=== PATIENT | male | born 1945 | race African-American/Black ===

== ENCOUNTER 2018-10-09 02:07 | Inpatient (IN) | payer OTHER ==
[2018-10-09] MEDS ORDERED: ONDANSETRON 4 MG/2 ML VIAL IVPUSH ONE (02:34)
[2018-10-09] MEDS ORDERED: ACETAMINOPHEN 1000 MG/100 ML VIAL (NON FORMULARY) IVPB ONE (02:34)
[2018-10-09] MEDS ORDERED: ACETAMINOPHEN INJECTION 100 ML IVPB ONE ×2 (02:45→02:50)
[2018-10-09] MEDS ORDERED: ONDANSETRON 4 MG/2 ML VIAL ONE ×2 (02:45→02:51)
[2018-10-09 02:59] LABS: BASO % 0.6 % (0-2.0); EOS % 0.1 % (0-4.5); HEMATOCRIT 42.3 % (35.4-49); HEMOGLOBIN 13.9 GM/dL (11.7-16.9); LYMPH % 3.5 % (8-40); MCH 27.9 pg (25.7-33.7); MCHC 32.8 g/dl (32.0-35.9); MEAN PLT VOLUME 7.6 fl (7.5-11.1); MONO % 9.8 % (3.8-10.2); PLATELET COUNT 204 K/MM3 (134-434); RBC 4.97 M/mm3 (4.00-5.60); RDW 13.6 % (11.9-15.9); WHITE BLOOD COUNT 21.9 K/mm3 (4.0-10.0)
[2018-10-09 03:01] LABS: EPI CELLS 1.3 /HPF (0-5); URINE APPEARANCE CLEAR; URINE BACTERIA 0.8 /hpf (NEGATIVE); URINE BILIRUBIN NEGATIVE (NEGATIVE); URINE CASTS 19 /hpf (0-8); URINE COLOR DK YELLOW; URINE GLUCOSE (UA) NEGATIVE (NEGATIVE); URINE KETONE TRACE (NEGATIVE); URINE LEUK ESTERASE NEGATIVE (NEGATIVE); URINE NITRITE NEGATIVE (NEGATIVE); URINE PROTEIN TRACE (NEGATIVE); URINE RBC 3 /hpf (0-4); URINE WBC 2 /hpf (0-5)
[2018-10-09] MEDS ORDERED: PIPERACILLIN/TAZOB 3.375 GM 3.375 GM in DEXTROSE 5%-WATER - 50 ML IVPB ONE (03:02)
[2018-10-09] MEDS ORDERED: PIPERACILLIN/TAZOB 3.375 GM 3.375 GM/50 ML BAG IVPB ONE (03:06)
--- NOTE | 2018-10-09 03:12 | PDOC ---
History of Present Illness - General Chief Complaint: Pain, Acute Stated Complaint: ABD PAIN Time Seen by Provider: 10/09/18 02:24 History Source: Patient Exam Limitations: No Limitations - History of Present Illness Initial Comments: 10/09/18 03:06 Patient is a 73M with history of kidney cancer s/p L nephrectomy, hernia repair , HTN here today complaining of diffuse abdominal pain, worse on the right side. Patient endorses nausea and vomiting yesterday. Patient states that he's just burping. Last bowel movement 10/07 evening. Passed gas yesterday. Denies fevers, chills. Endorses abdominal distention. Denies dysuria. Past History - Past Medical History Allergies/Adverse Reactions: Allergies Allergy/AdvReac Type Severity Reaction Status Date / Time No Known Drug Allergies Allergy Verified 10/09/18 02:20 Home Medications: Ambulatory Orders Aspirin 81 mg PO DAILY 10/26/12 Docosahexanoic Acid/Epa [Fish Oil Softgel] 1 each PO DAILY 10/26/12 Hydrochlorothiazide [Hctz] 25 mg PO DAILY 10/26/12 Metoprolol Succinate [Toprol XL] 25 mg PO DAILY 10/26/12 Multivitamin with Minerals [Men's One Daily] 1 each PO DAILY 10/26/12 Nifedipine [Nifedipine ER] 90 mg PO DAILY 10/26/12 Potassium Chloride Oral Soln [KCl *Liquid*] 20 meq PO DAILY 10/26/12 Cancer: Yes (KIDNEY/PROSTATE) Cardiac Disorders: No CVA: No COPD: No CHF: No Dementia: No Diabetes: No GI Disorders: No Disorders: No HTN: Yes Hypercholesterolemia: No Liver Disease: No Seizures: No Thyroid Disease: No - Surgical History Abdominal Surgery: No Appendectomy: No Cardiac Surgery: No Cholecystectomy: No Lung Surgery: No Neurologic Surgery: No Orthopedic Surgery: No - Immunization History Immunization Up to Date: Yes - Suicide/Smoking/Psychosocial Hx Smoking History: Never smoked Have you smoked in the past 12 months: No If you are a former smoker, when did you quit?: 1992 Information on smoking cessation initiated: No Hx Alcohol Use: No Drug/Substance Use Hx: No Substance Use Type: None Hx Substance Use Treatment: No Review of Systems - Review of Systems Comments:: 10/09/18 03:09 GENERAL/CONSTITUTIONAL: No fever or chills. No weakness. HEAD, EYES, EARS, NOSE AND THROAT: No change in vision. No sore throat. CARDIOVASCULAR: No chest pain or shortness of breath RESPIRATORY: No cough, wheezing, or hemoptysis. GASTROINTESTINAL: +nausea, +vomiting, no diarrhea or constipation. GENITOURINARY: No dysuria, frequency, or change in urination. MUSCULOSKELETAL: No joint or muscle swelling or pain. No neck or back pain. SKIN: No rash NEUROLOGIC: No headache, vertigo, loss of consciousness, or change in strength/ sensation. HEMATOLOGIC/LYMPHATIC: No anemia, easy bleeding, or history of blood clots. ALLERGIC/IMMUNOLOGIC: No hives or skin allergy. *Physical Exam - Vital Signs Last Vital Signs Temp Pulse Resp BP Pulse Ox 97.7 F 67 18 101/64 97 10/09/18 02:20 10/09/18 02:20 10/09/18 02:20 10/09/18 02:20 10/09/18 03:01 - Physical Exam Comments: 10/09/18 03:09 GENERAL: Awake, alert, and fully oriented, in no acute distress HEAD: No signs of trauma, normocephalic, atraumatic EYES: PERRLA, EOMI, sclera anicteric, conjunctiva clear ENT: Auricles normal inspection, hearing grossly normal, nares patent, oropharynx clear without exudates. Moist mucosa NECK: Normal ROM, supple, no lymphadenopathy, JVD, or masses LUNGS: No distress, speaks full sentences, clear to auscultation bilaterally HEART: Regular rate and rhythm, normal S1 and S2, no murmurs, rubs or gallops, peripheral pulses normal and equal bilaterally. ABDOMEN: Distended, diffusely tender, worse on right side. +Voluntary guarding. EXTREMITIES: Normal inspection, Normal range of motion, no edema. No clubbing or cyanosis. NEUROLOGICAL: Cranial nerves II through XII grossly intact. Normal speech, no focal sensorimotor deficits SKIN: Warm, Dry, normal turgor, no rashes or lesions noted. ED Treatment Course - LABORATORY CBC & Chemistry Diagram: 10/09/18 02:55 10/09/18 02:55 - ADDITIONAL ORDERS Additional order review: 10/09/18 02:55 RBC 4.97 MCV 85.0 MCHC 32.8 RDW 13.6 MPV 7.6 D Neutrophils % 86.0 H D Lymphocytes % 3.5 L D Monocytes % 9.8 Eosinophils % 0.1 D Basophils % 0.6 - RADIOLOGY Radiology Studies Ordered: Category Date Time Status ABDOMEN & PELVIS CT WITH CONTR [CT] Stat CT Scan 10/09/18 02:35 Ordered - Medications Given in the ED: ED Medications Discontinued Medications Generic Name Dose Route Start Last Admin Trade Name Kalebq PRN Reason Stop Dose Admin Acetaminophen 1,000 mg 10/09/18 02:34 10/09/18 02:52 Ofirmev Injection - IVPB 10/09/18 02:35 1,000 mg ONCE ONE Administration Ondansetron HCl 4 mg 10/09/18 02:34 10/09/18 02:52 Zofran Injection IVPUSH 10/09/18 02:35 4 mg ONCE ONE Administration Medical Decision Making - Medical Decision Making 10/09/18 03:10 Patient is 73M with history of HTN, kidney cancer s/p L sided nephrectomy, and hernia repair here today with abdominal pain. Vitals normal and stable. DDx includes, but is not limited to: sbo, cholecystitis, uti. Will treat with zofran and tylenol, morphine declined by patient. Abdominal labs, CT a/p with iv contrast. CBC shows white count of 22, given zosyn empirically, suspect acute intraabdominal process. 10/09/18 04:45 CMP shows baseline CKD. Lipase normal. Liver enzymes normal. Tbili 1.1. CT shows severe acute cholecystitis, mild inflammation of pancreatic head. Dr Haynes consulted, case discussed. 10/09/18 05:07 Case d/w Dr Hall. *DC/Admit/Observation/Transfer Diagnosis at time of Disposition: Acute cholecystitis - Discharge Dispostion Condition at time of disposition: Stable Decision to Admit order: Yes - Referrals Referrals: Lianne Negron MD [Primary Care Provider] - - Patient Instructions - Post Discharge Activity
[2018-10-09 03:27] LABS: INR 1.23 (0.83-1.09); PROTHROMBIN TIME (PATIENT) 14.5 SEC (9.7-13.0)
[2018-10-09 03:32] LABS: ALBUMIN 3.5 g/dl (3.4-5.0); ALK PHOS 80 U/L (45-117); ANION GAP 11 MMOL/L (8-16); BILIRUBIN,TOTAL 1.1 mg/dL (0.2-1); BLOOD UREA NITROGEN 19 mg/dL (7-18); CALCIUM 8.6 mg/dL (8.5-10.1); CHLORIDE 105 mmol/L (98-107); CO2 26 mmol/L (21-32); CREATININE 1.7 mg/dL (0.55-1.3); GLUCOSE,RANDOM 144 mg/dL (74-106); LIPASE 148 U/L (73-393); POTASSIUM 3.3 mmol/L (3.5-5.1); SGOT/AST 20 U/L (15-37); SGPT/ALT 16 U/L (13-61); SODIUM 142 mmol/L (136-145); TOT PROT 6.8 g/dl (6.4-8.2)
[2018-10-09] MEDS ORDERED: SODIUM CHLORIDE 1,000 ML IV STA (03:41)
--- NOTE | 2018-10-09 04:31 | PDOC ---
Attending Attestation - Resident Resident Name: Luis Worley - ED Attending Attestation I have performed the following: I have examined & evaluated the patient, The case was reviewed & discussed with the resident, I agree w/resident's findings & plan, Exceptions are as noted - HPI HPI: 10/09/18 06:56 73M here with generalized abdominal px, R>L a/w frequent burping, last BM yesterday, passing gas - Physicial Exam PE: 10/09/18 06:57 Agree with exam as documented by resident - Medical Decision Making 10/09/18 06:57 DDx for abdominal px in 73m is broad, including jude, appy, pancreatitis, gastritis f/u imaging analgesia labs Imaging consistent with acute cholecystitis admit gen surg eval
--- NOTE | 2018-10-09 05:09 | HP ---
CHIEF COMPLAINT: Abdominal pain PCP:DR Eng HISTORY OF PRESENT ILLNESS: Patient is a 73M with history of kidney cancer s/p L nephrectomy, hernia repair , HTN, prosatectomy here today complaining of diffuse abdominal pain, worse on the right side. Patient endorses nausea and vomiting yesterday. Patient states that he's just burping. Last bowel movement 10/07 evening. Passed gas yesterday. has similar episode last week , Denies fevers, chills. Endorses abdominal distention. Denies dysuria, hematuria reports slight chest pain 09/20 , short period of time non exertional , denies any headache , blurry vision , sore throat or recent cold. pt reports 2 episode of N/V NBNB yesterday ER course was notable for: (1)CT Abdomen, pelvic with acute cholecystitis and mild Pancreatitis (2)cbc, cmp WBC 21 , K 3.3, BUN/CR 19/1.7, glucose 144 (3)Zosyn , 1L bolus NS Recent Travel: denies PAST MEDICAL HISTORY: Left nephrectomy S/p kidney cancer , Prostatectomy, , HTN PAST SURGICAL HISTORY: as above Social History: Smoking:former smoker quit 20 years ago , smoke 1 ppd since age of 14 till 49 Alcohol:quit long time ago Drugs: denies Family History:none Allergies No Known Drug Allergies Allergy (Verified 10/09/18 02:20) HOME MEDICATIONS: Home Medications Medication Instructions Recorded Aspirin 81 mg PO DAILY 10/26/12 Docosahexanoic Acid/Epa [Fish Oil 1 each PO DAILY 10/26/12 Softgel] Hydrochlorothiazide [Hctz] 25 mg PO DAILY 10/26/12 Metoprolol Succinate [Toprol XL] 25 mg PO DAILY 10/26/12 Multivitamin with Minerals [Men's 1 each PO DAILY 10/26/12 One Daily] Nifedipine [Nifedipine ER] 90 mg PO DAILY 10/26/12 Potassium Chloride Oral Soln [KCl 20 meq PO DAILY 10/26/12 *Liquid*] REVIEW OF SYSTEMS CONSTITUTIONAL: Absent: fever, chills, diaphoresis, generalized weakness, malaise, loss of appetite, weight change HEENT: Absent: rhinorrhea, nasal congestion, throat pain, throat swelling, difficulty swallowing, mouth swelling, ear pain, eye pain, visual changes CARDIOVASCULAR: Absent: chest pain, syncope, palpitations, irregular heart rate, lightheadedness , peripheral edema RESPIRATORY: Absent: cough, shortness of breath, dyspnea with exertion, orthopnea, wheezing, stridor, hemoptysis GASTROINTESTINAL: Absent: abdominal pain, abdominal distension, nausea, vomiting, diarrhea, constipation, melena, hematochezia GENITOURINARY: Absent: dysuria, frequency, urgency, hesitancy, hematuria, flank pain, genital pain MUSCULOSKELETAL: Absent: myalgia, arthralgia, joint swelling, back pain, neck pain SKIN: Absent: rash, itching, pallor HEMATOLOGIC/IMMUNOLOGIC: Absent: easy bleeding, easy bruising, lymphadenopathy, frequent infections ENDOCRINE: Absent: unexplained weight gain, unexplained weight loss, heat intolerance, cold intolerance NEUROLOGIC: Absent: headache, focal weakness or paresthesias, dizziness, unsteady gait, seizure, mental status changes, bladder or bowel incontinence PSYCHIATRIC: Absent: anxiety, depression, suicidal or homicidal ideation, hallucinations. PHYSICAL EXAMINATION Vital Signs - 24 hr 10/09/18 10/09/18 02:20 03:01 Temperature 97.7 F Pulse Rate 67 Respiratory 18 Rate Blood Pressure 101/64 O2 Sat by Pulse 96 97 Oximetry (%) GENERAL: AAOx3 in NAD HEAD: NC/AT EYES: EOMI, Conjunctiva clear, sclera anicteric ENT: moist mucous membrane NECK: Supple, no JVD LUNGS: CTA B/L, no crackles no wheezing no accessory muscle use. HEART: RRR, normal s1, s2, murmur no M/R/G ABDOMEN: Soft, diffuse tenderness , distended RUQ tenderness RLQ , LLQ tenderness Liriano positive , +BS 4 Q, no CVA Tenderness, left surgical incision , Lower abdomen surgical incision LOWER EXTREMITIES: no edema, +2DP pulse, NEUROLOGICAL: No focal deficit. Normal speech. gait not observed. PSYCHIATRIC: Cooperative. Good eye contact. Appropriate mood and affect. SKIN: Warm, dry, Laboratory Results - last 24 hr 10/09/18 10/09/18 10/09/18 02:51 02:51 02:55 WBC 21.9 H RBC 4.97 Hgb 13.9 Hct 42.3 MCV 85.0 MCH 27.9 MCHC 32.8 RDW 13.6 Plt Count 204 MPV 7.6 D Absolute Neuts (auto) 18.8 H Neutrophils % 86.0 H D Lymphocytes % 3.5 L D Monocytes % 9.8 Eosinophils % 0.1 D Basophils % 0.6 Nucleated RBC % 0 PT with INR 14.50 H INR 1.23 H Sodium Potassium Chloride Carbon Dioxide Anion Gap BUN Creatinine Creat Clearance w eGFR Random Glucose Calcium Total Bilirubin AST ALT Alkaline Phosphatase Total Protein Albumin Lipase Urine Color Dk yellow Urine Appearance Clear Urine pH 5.0 Ur Specific [place] 1.021 Urine Protein Trace Urine Glucose (UA) Negative Urine Ketones Trace H Urine Blood Trace Urine Nitrite Negative Urine Bilirubin Negative Urine Urobilinogen 1.0 Ur Leukocyte Esterase Negative Urine WBC (Auto) 2 Urine RBC (Auto) 3 Urine Casts (Auto) 19 U Epithel Cells (Auto) 1.3 Urine Bacteria (Auto) 0.8 10/09/18 02:55 WBC RBC Hgb Hct MCV MCH MCHC RDW Plt Count MPV Absolute Neuts (auto) Neutrophils % Lymphocytes % Monocytes % Eosinophils % Basophils % Nucleated RBC % PT with INR INR Sodium 142 Potassium 3.3 L Chloride 105 Carbon Dioxide 26 Anion Gap 11 BUN 19 H Creatinine 1.7 H Creat Clearance w eGFR 39.71 Random Glucose 144 H Calcium 8.6 Total Bilirubin 1.1 H AST 20 ALT 16 Alkaline Phosphatase 80 Total Protein 6.8 Albumin 3.5 Lipase 148 Urine Color Urine Appearance Urine pH Ur Specific [place] Urine Protein Urine Glucose (UA) Urine Ketones Urine Blood Urine Nitrite Urine Bilirubin Urine Urobilinogen Ur Leukocyte Esterase Urine WBC (Auto) Urine RBC (Auto) Urine Casts (Auto) U Epithel Cells (Auto) Urine Bacteria (Auto) CBC, BMP 10/09/18 02:55 10/09/18 02:55 ASSESSMENT/PLAN: 73M with history of kidney cancer s/p L nephrectomy, hernia repair,prosatectomy , HTN presented with 2 day history of RUQ abdominal pain with N/V admitted to M /S for acute cholecystitis and mild pancreatitis # acute cholecystitis R.O sepsis , mild pancreatitis * CT scan reviewed * WBC 21.9 , BP 101/64 , started on zosyn in Ed will cont with ceftrixone , can deteriorate to sepsis , * LA , cbc bmp * Surgery consult , DR Haynes * PT, PTT , INR , MG, Phosphor, * type and screen , * EKG with NSR , QTC 365 * NPO * zofran for nausea , Tylenol IV for pain , * trend amylase and lipase * LR fluids bolus and maintenance # Mild atypicaL chest pain no EKG changes , trend trop , EKG # NAHID # H/o kidney cancer S/P left nephroectomy * BUN/Cr 19/1.7 * repeat after hydration * urine lytes , FENA, urine Na , urine urea * avoid nephrotoxic agents nSAID , Dye , contrast # HTN , * hold home meds HCTZ 25, Toprol xl 50 , Nefidipin 90 as pt is hypotensive * hold ASA # Hypokalemia likely due to HCTZ * K 3.3 on PO Kcl 20 at home , will replinished with IV now # Elevated BGM * A1c * BGM # right renal cyst * repeat images Q 6 months , follow ou out pt # FEN * NS@ 75 CC * E: monitor and replenished as needed * NPO # Proph * DVTs: SCDS, Hep SQ TID , hold before procedure * GI: no need for now # Dispo * M/S # Full code Visit type - Emergency Visit Emergency Visit: Yes ED Registration Date: 10/09/18 Care time: The patient presented to the Emergency Department on the above date and was hospitalized for further evaluation of their emergent condition. - New Patient This patient is new to me today: Yes Date on this admission: 10/09/18 - Critical Care Critical Care patient: No
--- NOTE | 2018-10-09 05:13 | PN ---
Teaching Attending Note Name of Resident: Sorin Hall ATTENDING PHYSICIAN STATEMENT I saw and evaluated the patient. I reviewed the resident's note and discussed the case with the resident. I agree with the resident's findings and plan as documented. SUBJECTIVE: Patient is a 73 year old man with PMH of kidney cancer s/p L nephrectomy, hernia repair, HTN here today complaining of diffuse abdominal pain, worse on the right side. Patient had nausea and vomiting yesterday. Patient states that he's just burping. Last bowel movement 10/07 evening. Passed gas yesterday. Denies fevers, chills but has abdominal distention. Denies dysuria, hematuria, frequency, chest pain, SOB or dizziness. OBJECTIVE: Alert Vital Signs Period Temp Pulse Resp BP Sys/Capellan Pulse Ox Last 24 Hr 97.7 F 67 18 101/64 96-97 HEENT: No Jaundice, eye redness or discharge, PERRLA, EOMI. Normocephalic, atraumatic. External ears are normal and hearing is grossly intact. No nasal discharge. Neck: Supple, nontender. No palpable adenopathy or thyromegaly. No JVD Chest: Good effort. Clear to auscultation and percussion. Heart: Regular. No S3, rub or murmur Abdomen: Distended, soft, RUQ tenderness and no HSM. No rebound or guarding. Normal bowel sounds. Ext: Peripheral pulses intact. No leg edema. Skin: Warm and dry. No petechiae, rash or ecchymosis. Neuro: Alert. Oriented x3. CN 2-12 grossly intact. Sensation grossly intact in all four extremities and DTR are symmetric. Psych: Appropriate mood and affect. Good insight. Home Medications Medication Instructions Recorded Aspirin 81 mg PO DAILY 10/26/12 Docosahexanoic Acid/Epa [Fish Oil 1 each PO DAILY 10/26/12 Softgel] Hydrochlorothiazide [Hctz] 25 mg PO DAILY 10/26/12 Metoprolol Succinate [Toprol XL] 25 mg PO DAILY 10/26/12 Multivitamin with Minerals [Men's 1 each PO DAILY 10/26/12 One Daily] Nifedipine [Nifedipine ER] 90 mg PO DAILY 10/26/12 Potassium Chloride Oral Soln [KCl 20 meq PO DAILY 10/26/12 *Liquid*] Abnormal Lab Results 10/09/18 10/09/1810/09/19 02:51 02:51 02:55 WBC 21.9 H Absolute Neuts (auto) 18.8 H Neutrophils % 86.0 H D Lymphocytes % 3.5 L D PT with INR 14.50 H INR 1.23 H Potassium BUN Creatinine Random Glucose Total Bilirubin Urine Ketones Trace H 10/09/18 02:55 WBC Absolute Neuts (auto) Neutrophils % Lymphocytes % PT with INR INR Potassium 3.3 L BUN 19 H Creatinine 1.7 H Random Glucose 144 H Total Bilirubin 1.1 H Urine Ketones ASSESSMENT AND PLAN: 1. Cholecystitis - CT shows severe acute cholecystitis, mild inflammation of pancreatic head. Got IV Zosyn and I liter bolus of NS in the ER. Getting sepsis work up, lactic acid level and will continue IV NS. EKG shows sinus bradycardia with no ST-T wave changes. Surgeon - Dr. Haynes consulted by ER staff for cholecystitis. Being kept NPO. 2. NAHID - Likely partly due to dehydration in the setting of single kidney. Will hold HCTZ and hydrate gently with IV NS. Hypokalemia likely due to HCTZ. Check serum Mg+ and give IV KCL. Consult nephrology and avoid nephrotoxic agents such as NSAIDS, aminoglycosides, contrast dyes and certain Alternative medicine products. 3. DVT prophylaxis - Lovenox 40 mg SQ q 24 hours. 4. Advance directives - Full code
[2018-10-09] MEDS ORDERED: ONDANSETRON 4 MG/2 ML VIAL IVPUSH PRN (05:44)
[2018-10-09] MEDS ORDERED: SODIUM CHLORIDE 1,000 ML IV SCH ×2 (05:45→06:02)
[2018-10-09] MEDS ORDERED: KCL 10 MEQ IVPB 10 MEQ/100 ML INFUS.BAG IVPB SCH (06:15)
[2018-10-09] MEDS ORDERED: LACTATED RINGERS SOLUTION 1,000 ML/1,000 ML INFUS.BAG IV SCH (06:15)
[2018-10-09 07:01] VITALS: BMI 24.7
[2018-10-09 09:07] LABS: AMYLASE 75 U/L (25-115); LIPASE 101 U/L (73-393)
[2018-10-09 09:13] LABS: BILIRUBIN,DIRECT 0.4 mg/dL (0.0-0.2); MAGNESIUM 2.2 mg/dL (1.8-2.4); PHOSPHOROUS 3.5 mg/dL (2.5-4.9)
--- NOTE | 2018-10-09 10:14 | CONSULT ---
Consult Consult Specialty:: Surgery: Reason for Consultation:: Abdominal pain , cholecystitis. - History of Present Illness Chief Complaint: 73 year old man c/o abdominal pain and distention for 4 days, associated with nausea. - History Source History Provided By: Patient Limitations to Obtaining History: No Limitations (Prostatectomy, Left nephrouretectomy, for maliganancy in 2005.) - Past Surgical History Past Surgical History: Yes: Nephrectomy, Prostatectomy. No: Liver Transplant, Orchiectomy - Alcohol/Substance Use Hx Alcohol Use: No - Smoking History Smoking history: Never smoked Have you smoked in the past 12 months: No If you are a former smoker, when did you quit?: 1992 Home Medications - Allergies Allergies/Adverse Reactions: Allergies Allergy/AdvReac Type Severity Reaction Status Date / Time No Known Drug Allergies Allergy Verified 10/09/18 02:20 - Home Medications Home Medications: Ambulatory Orders Aspirin 81 mg PO DAILY 10/26/12 Docosahexanoic Acid/Epa [Fish Oil Softgel] 1 each PO DAILY 10/26/12 Hydrochlorothiazide [Hctz] 25 mg PO DAILY 10/26/12 Metoprolol Succinate [Toprol XL] 50 mg PO DAILY 10/26/12 Multivitamin with Minerals [Men's One Daily] 1 each PO DAILY 10/26/12 Nifedipine [Nifedipine ER] 90 mg PO DAILY 10/26/12 Potassium Chloride Oral Soln [KCl *Liquid*] 20 meq PO DAILY 10/26/12 Alfuzosin HCl [Alfuzosin HCl ER] 10 mg PO DAILY 10/09/18 Physical Exam Vital Signs: Vital Signs Temperature 98.8 F 10/09/18 08:17 Pulse Rate 62 10/09/18 08:17 Respiratory Rate 20 10/09/18 08:17 Blood Pressure 130/61 10/09/18 08:17 O2 Sat by Pulse Oximetry (%) 97 10/09/18 05:13 Gastrointestinal: Yes: Distention (Abdomen is distender , tender in right upper quadrant with guarding, Big distended, palpable gallbladder), Palpable Mass ( Palpable gallbladder in right upper quadrant.) Labs: CBC, BMP 10/09/18 02:55 10/09/18 02:55 Imaging - Results Cat Scan: Report Reviewed (Distended gallbladder , ? pancreatitis.) Problem List - Problems (1) Cholelithiasis and acute cholecystitis with obstruction Code(s): K80.01 - CALCULUS OF GALLBLADDER W ACUTE CHOLECYSTITIS W OBSTRUCTION (2) Renal dysfunction Code(s): N28.9 - DISORDER OF KIDNEY AND URETER, UNSPECIFIED (3) Hypokalemia Code(s): E87.6 - HYPOKALEMIA (4) Hyperglycemia Code(s): R73.9 - HYPERGLYCEMIA, UNSPECIFIED (5) Leucocytosis Code(s): D72.829 - ELEVATED WHITE BLOOD CELL COUNT, UNSPECIFIED Assessment/Plan Patient has severe inflammation around the gallbladder and around the pancreas, He has acute on chronic renal dysfunction . Markedly distended gallbladder. Will request drainage of the gallbladder , control the infection and consider interval cholecystectomy. Request made for ultrasound and drainage of the gallbladder. Antibiotics. Hydrate . Correct hyerglycemia, and hypokalemia. He has been on aspirin
[2018-10-09 10:21] LABS: BASO % 0.5 % (0-2.0); EOS % 0.8 % (0-4.5); HEMATOCRIT 41.1 % (35.4-49); HEMOGLOBIN 13.6 GM/dL (11.7-16.9); LYMPH % 6.3 % (8-40); MCH 28.4 pg (25.7-33.7); MEAN CELL VOLUME 86.1 fl (80-96); MEAN PLT VOLUME 8.3 fl (7.5-11.1); NEUT % 82.4 % (42.8-82.8); PLATELET COUNT 183 K/MM3 (134-434); RBC 4.77 M/mm3 (4.00-5.60); RDW 13.8 % (11.9-15.9); WHITE BLOOD COUNT 19.2 K/mm3 (4.0-10.0)
--- NOTE | 2018-10-09 10:22 | EKG ---
Test Reason : Blood Pressure : / mmHG Vent. Rate : 060 BPM Atrial Rate : 060 BPM P-R Int : 152 ms QRS Dur : 094 ms QT Int : 396 ms P-R-T Axes : 059 -12 035 degrees QTc Int : 396 ms NORMAL SINUS RHYTHM NONSPECIFIC T WAVE ABNORMALITY ABNORMAL ECG WHEN COMPARED WITH ECG OF 09-OCT-2018 02:51, NO SIGNIFICANT CHANGE WAS FOUND Confirmed by TANVIR ARELLANO MD ([id number]) on 10/09/2018 10:22:11 AM Referred By: EVE JUDD Confirmed By:TANVIR ARELLANO MD
--- NOTE | 2018-10-09 10:25 | EKG ---
Test Reason : Blood Pressure : / mmHG Vent. Rate : 057 BPM Atrial Rate : 057 BPM P-R Int : 148 ms QRS Dur : 086 ms QT Int : 376 ms P-R-T Axes : 055 -15 042 degrees QTc Int : 365 ms SINUS BRADYCARDIA NONSPECIFIC T WAVE ABNORMALITY ABNORMAL ECG Confirmed by TANVIR ARELLANO MD ([id number]) on 10/09/2018 10:24:38 AM Referred By: Confirmed By:TANVIR ARELLANO MD
[2018-10-09 10:35] LABS: ALBUMIN 3.2 g/dl (3.4-5.0); ALK PHOS 76 U/L (45-117); ANION GAP 7 MMOL/L (8-16); BILIRUBIN,TOTAL 1.2 mg/dL (0.2-1); BLOOD UREA NITROGEN 18 mg/dL (7-18); CALCIUM 8.8 mg/dL (8.5-10.1); CHLORIDE 107 mmol/L (98-107); CO2 26 mmol/L (21-32); CREATININE 1.4 mg/dL (0.55-1.3); GLUCOSE,RANDOM 113 mg/dL (74-106); POTASSIUM 3.4 mmol/L (3.5-5.1); SGOT/AST 18 U/L (15-37); SGPT/ALT 16 U/L (13-61); SODIUM 140 mmol/L (136-145); TOT PROT 6.3 g/dl (6.4-8.2)
[2018-10-09] MEDS ORDERED: MIDAZOLAM HCL 2 MG/2 ML SINGLE DOSE VIAL IVPUSH ONE ×2 (11:33→11:50)
[2018-10-09] MEDS ORDERED: DEXTROSE 5%-WATER - 50 ML IVPB ONE (12:16)
[2018-10-09] MEDS ORDERED: cefTRIAXone SODIUM 1 GM VIAL ONE (12:16)
[2018-10-09] MEDS: metoPROLOL SUCCINATE 25 MG TAB.SR.24H (FP) PO SCH ×2 (12:35→21:07)
[2018-10-09 13:33] LABS: INR 1.31 (0.83-1.09); PROTHROMBIN TIME (PATIENT) 15.5 SEC (9.7-13.0)
[2018-10-09] MEDS: CEFTRIAXONE 1 GM in DEXTROSE 5%-WATER - 50 ML IVPB SCH (14:02)
--- NOTE | 2018-10-09 16:38 | PN ---
Teaching Attending Note Name of Resident: Myrna Fajardo ATTENDING PHYSICIAN STATEMENT I saw and evaluated the patient. I reviewed the resident's note and discussed the case with the resident. I agree with the resident's findings and plan as documented with exceptions below. SUBJECTIVE: Patient seen and examined. c/o abdominal pain. No nausea, vomiting or concerns. OBJECTIVE: Vital Signs Period Temp Pulse Resp BP Sys/Capellan Pulse Ox Last 24 Hr 97.2 F-98.8 F 60-71 14-21 101-160/61-86 96-100 Intake & Output 10/06/18 10/07/18 10/08/18 10/09/18 23:59 23:59 23:59 23:59 Intake Total 350 Output Total 1200 Balance -850 Weight 168 lb general: lying in bed in no acute distress Chest: CTAB, no rales or wheezing Abdomen: soft, tenderness in RUQ with positive Liriano' sign, po-umbilical mild tenderness, RUQ guarding, no rigidity, positive bowel sounds Extremities: no edema Home Medications Medication Instructions Recorded Aspirin 81 mg PO DAILY 10/26/12 Docosahexanoic Acid/Epa [Fish Oil 1 each PO DAILY 10/26/12 Softgel] Hydrochlorothiazide [Hctz] 25 mg PO DAILY 10/26/12 Metoprolol Succinate [Toprol XL] 50 mg PO DAILY 10/26/12 Multivitamin with Minerals [Men's 1 each PO DAILY 10/26/12 One Daily] Nifedipine [Nifedipine ER] 90 mg PO DAILY 10/26/12 Potassium Chloride Oral Soln [KCl 20 meq PO DAILY 10/26/12 *Liquid*] Alfuzosin HCl [Alfuzosin HCl ER] 10 mg PO DAILY 10/09/18 Active Medications Heparin Sodium (Porcine) (Heparin -) 5,000 unit SQ TID [facility] Ceftriaxone Sodium 1 gm/ (Dextrose) 50 mls @ 100 mls/hr IVPB DAILY [facility]; Protocol Last Admin: 10/09/18 14:02 Dose: 100 mls/hr Metronidazole (Flagyl 500mg Premixed Ivpb -) 500 mg in 100 mls @ 100 mls/hr IVPB Q8H-IV [facility] Last Admin: 10/09/18 12:35 Dose: 100 mls/hr Dextrose/Lactated Ringer's (D5-Lr -) 1,000 mls @ 100 mls/hr IV ASDIR [facility] Metoprolol Succinate (Toprol Xl -) 25 mg PO BID [facility] Last Admin: 10/09/18 12:35 Dose: 25 mg Ondansetron HCl (Zofran Injection) 4 mg IVPUSH Q6H PRN PRN Reason: NAUSEA Laboratory Results - last 24 hr 10/09/18 10/09/18 10/09/18 02:51 02:51 02:51 WBC RBC Hgb Hct MCV MCH MCHC RDW Plt Count MPV Absolute Neuts (auto) Total Counted Neutrophils % Neutrophils % (Manual) Band Neutrophils % Lymphocytes % Lymphocytes % (Manual) Monocytes % Monocytes % (Manual) Eosinophils % Basophils % Nucleated RBC % PT with INR 14.50 H INR 1.23 H PTT (Actin FS) 30.7 Sodium Potassium Chloride Carbon Dioxide Anion Gap BUN Creatinine Creat Clearance w eGFR Random Glucose Lactic Acid Calcium Phosphorus Magnesium Total Bilirubin Direct Bilirubin AST ALT Alkaline Phosphatase Troponin I Total Protein Albumin Total Amylase Lipase Urine Color Dk yellow Urine Appearance Clear Urine pH 5.0 Ur Specific [place] 1.021 Urine Protein Trace Urine Glucose (UA) Negative Urine Ketones Trace H Urine Blood Trace Urine Nitrite Negative Urine Bilirubin Negative Urine Urobilinogen 1.0 Ur Leukocyte Esterase Negative Urine WBC (Auto) 2 Urine RBC (Auto) 3 Urine Casts (Auto) 19 U Pathogenic Cast Auto Review A* U Epithel Cells (Auto) 1.3 Urine Bacteria (Auto) 0.8 Blood Type Antibody Screen 10/09/18 10/09/18 10/09/18 02:55 02:55 05:31 WBC 21.9 H RBC 4.97 Hgb 13.9 Hct 42.3 MCV 85.0 MCH 27.9 MCHC 32.8 RDW 13.6 Plt Count 204 MPV 7.6 D Absolute Neuts (auto) 18.8 H Total Counted 100 Neutrophils % 86.0 H D Neutrophils % (Manual) 80.0 Band Neutrophils % 9.0 Lymphocytes % 3.5 L D Lymphocytes % (Manual) 7.0 L Monocytes % 9.8 Monocytes % (Manual) 4 Eosinophils % 0.1 D Basophils % 0.6 Nucleated RBC % 0 PT with INR INR PTT (Actin FS) Sodium 142 Potassium 3.3 L Chloride 105 Carbon Dioxide 26 Anion Gap 11 BUN 19 H Creatinine 1.7 H Creat Clearance w eGFR 39.71 Random Glucose 144 H Lactic Acid Calcium 8.6 Phosphorus Magnesium Total Bilirubin 1.1 H Direct Bilirubin AST 20 ALT 16 Alkaline Phosphatase 80 Troponin I Total Protein 6.8 Albumin 3.5 Total Amylase Lipase 148 Urine Color Urine Appearance Urine pH Ur Specific [place] Urine Protein Urine Glucose (UA) Urine Ketones Urine Blood Urine Nitrite Urine Bilirubin Urine Urobilinogen Ur Leukocyte Esterase Urine WBC (Auto) Urine RBC (Auto) Urine Casts (Auto) U Pathogenic Cast Auto U Epithel Cells (Auto) Urine Bacteria (Auto) Blood Type O POSITIVE Antibody Screen Negative 10/09/18 10/09/18 10/09/18 08:30 08:30 08:30 WBC RBC Hgb Hct MCV MCH MCHC RDW Plt Count MPV Absolute Neuts (auto) Total Counted Neutrophils % Neutrophils % (Manual) Band Neutrophils % Lymphocytes % Lymphocytes % (Manual) Monocytes % Monocytes % (Manual) Eosinophils % Basophils % Nucleated RBC % PT with INR INR PTT (Actin FS) Sodium 140 Potassium 3.4 L Chloride 107 Carbon Dioxide 26 Anion Gap 7 L BUN 18 Creatinine 1.4 H Creat Clearance w eGFR 49.68 Random Glucose 113 H Lactic Acid 1.0 Calcium 8.8 Phosphorus 3.5 Magnesium 2.2 Total Bilirubin 1.2 H Direct Bilirubin 0.4 H AST 18 ALT 16 Alkaline Phosphatase 76 Troponin I < 0.02 Total Protein 6.3 L Albumin 3.2 L Total Amylase 75 Lipase 101 Urine Color Urine Appearance Urine pH Ur Specific [place] Urine Protein Urine Glucose (UA) Urine Ketones Urine Blood Urine Nitrite Urine Bilirubin Urine Urobilinogen Ur Leukocyte Esterase Urine WBC (Auto) Urine RBC (Auto) Urine Casts (Auto) U Pathogenic Cast Auto U Epithel Cells (Auto) Urine Bacteria (Auto) Blood Type Antibody Screen 10/09/18 10/09/18 10/09/18 08:30 09:30 12:49 WBC 19.2 H RBC 4.77 Hgb 13.6 Hct 41.1 MCV 86.1 MCH 28.4 MCHC 33.0 RDW 13.8 Plt Count 183 MPV 8.3 Absolute Neuts (auto) 15.8 H Total Counted Neutrophils % 82.4 Neutrophils % (Manual) Band Neutrophils % Lymphocytes % 6.3 L D Lymphocytes % (Manual) Monocytes % 10.0 Monocytes % (Manual) Eosinophils % 0.8 D Basophils % 0.5 Nucleated RBC % 0 PT with INR 15.50 H INR 1.31 H PTT (Actin FS) Sodium Potassium Chloride Carbon Dioxide Anion Gap BUN Creatinine Creat Clearance w eGFR Random Glucose Lactic Acid Calcium Phosphorus Magnesium Total Bilirubin Direct Bilirubin AST ALT Alkaline Phosphatase Troponin I Total Protein Albumin Total Amylase Lipase Urine Color Urine Appearance Urine pH Ur Specific [place] Urine Protein Urine Glucose (UA) Urine Ketones Urine Blood Urine Nitrite Urine Bilirubin Urine Urobilinogen Ur Leukocyte Esterase Urine WBC (Auto) Urine RBC (Auto) Urine Casts (Auto) U Pathogenic Cast Auto U Epithel Cells (Auto) Urine Bacteria (Auto) Blood Type O POSITIVE Antibody Screen CT A/P results reviewed ASSESSMENT AND PLAN: 73 yom with PMHx of L kidney cancer s/p nephrectomy, CKD stage III (Cr around 1.6-1.7), HTN admitted with RUQ abdominal pain, found with acute cholecystitis and mild pancreatitis. -Acute cholecystitis/Pancreatitis around the head, with sepsis -Cholelithiasis -CKD stage III (baseline Cr around 1.6-1.7) -HTN -Left kidney cancer s/p nephrectomy -Hyperglycemia Plan: ceftriaxone/flagyl. Discussed with Dr. Haynes, plan for IR guided cholecystostomy tube placement. Pancreatic head inflammation, ?From adjacent choleystitis rather than obstructive etiology. Normal LFTs and bilirubin Follow blood cx. IVF, NPO for now. Continue metoprolol. Check A1c monitor renal function. dvTPPX heparin Dispo pending clinical improvement. Plan discussed with patient and nursing in detail, all questions answered. Care co-ordinated with surgery and IR.
[2018-10-09] MEDS: DEXTROSE 5%-LACTATED RINGERS 1,000 ML IV SCH (16:51)
--- NOTE | 2018-10-09 19:06 | PN ---
Physical Exam: SUBJECTIVE: Patient seen and examined ; c/o abdominal pain RUQ OBJECTIVE: Vital Signs Period Temp Pulse Resp BP Sys/Capellan Pulse Ox Last 24 Hr 97.2 F-98.8 F 60-71 14-21 101-160/61-86 96-100 GENERAL: The patient is awake, alert, and fully oriented, in no acute distress. LUNGS: Breath sounds equal, clear to auscultation bilaterally, no wheezes, no crackles, no accessory muscle use. HEART: Regular rate and rhythm, S1, S2 without murmur, rub or gallop. ABDOMEN: RUQ tenderness; very hard to palpation in area; BS+ EXTREMITIES: 2+ pulses, warm, well-perfused, no edema. NEUROLOGICAL: Cranial nerves II through XII grossly intact. Normal speech, gait not observed. PSYCH: Normal mood, normal affect. SKIN: Warm, dry, normal turgor, no rashes or lesions noted Laboratory Results - last 24 hr 10/09/18 10/09/18 10/09/18 02:51 02:51 02:51 WBC RBC Hgb Hct MCV MCH MCHC RDW Plt Count MPV Absolute Neuts (auto) Total Counted Neutrophils % Neutrophils % (Manual) Band Neutrophils % Lymphocytes % Lymphocytes % (Manual) Monocytes % Monocytes % (Manual) Eosinophils % Basophils % Nucleated RBC % PT with INR 14.50 H INR 1.23 H PTT (Actin FS) 30.7 Sodium Potassium Chloride Carbon Dioxide Anion Gap BUN Creatinine Creat Clearance w eGFR POC Glucometer Random Glucose Lactic Acid Calcium Phosphorus Magnesium Total Bilirubin Direct Bilirubin AST ALT Alkaline Phosphatase Troponin I Total Protein Albumin Total Amylase Lipase Urine Color Dk yellow Urine Appearance Clear Urine pH 5.0 Ur Specific [place] 1.021 Urine Protein Trace Urine Glucose (UA) Negative Urine Ketones Trace H Urine Blood Trace Urine Nitrite Negative Urine Bilirubin Negative Urine Urobilinogen 1.0 Ur Leukocyte Esterase Negative Urine WBC (Auto) 2 Urine RBC (Auto) 3 Urine Casts (Auto) 19 U Pathogenic Cast Auto Review A* U Epithel Cells (Auto) 1.3 Urine Bacteria (Auto) 0.8 Blood Type Antibody Screen 10/09/18 10/09/18 10/09/18 02:55 02:55 05:31 WBC 21.9 H RBC 4.97 Hgb 13.9 Hct 42.3 MCV 85.0 MCH 27.9 MCHC 32.8 RDW 13.6 Plt Count 204 MPV 7.6 D Absolute Neuts (auto) 18.8 H Total Counted 100 Neutrophils % 86.0 H D Neutrophils % (Manual) 80.0 Band Neutrophils % 9.0 Lymphocytes % 3.5 L D Lymphocytes % (Manual) 7.0 L Monocytes % 9.8 Monocytes % (Manual) 4 Eosinophils % 0.1 D Basophils % 0.6 Nucleated RBC % 0 PT with INR INR PTT (Actin FS) Sodium 142 Potassium 3.3 L Chloride 105 Carbon Dioxide 26 Anion Gap 11 BUN 19 H Creatinine 1.7 H Creat Clearance w eGFR 39.71 POC Glucometer Random Glucose 144 H Lactic Acid Calcium 8.6 Phosphorus Magnesium Total Bilirubin 1.1 H Direct Bilirubin AST 20 ALT 16 Alkaline Phosphatase 80 Troponin I Total Protein 6.8 Albumin 3.5 Total Amylase Lipase 148 Urine Color Urine Appearance Urine pH Ur Specific [place] Urine Protein Urine Glucose (UA) Urine Ketones Urine Blood Urine Nitrite Urine Bilirubin Urine Urobilinogen Ur Leukocyte Esterase Urine WBC (Auto) Urine RBC (Auto) Urine Casts (Auto) U Pathogenic Cast Auto U Epithel Cells (Auto) Urine Bacteria (Auto) Blood Type O POSITIVE Antibody Screen Negative 10/09/18 10/09/18 10/09/18 08:30 08:30 08:30 WBC RBC Hgb Hct MCV MCH MCHC RDW Plt Count MPV Absolute Neuts (auto) Total Counted Neutrophils % Neutrophils % (Manual) Band Neutrophils % Lymphocytes % Lymphocytes % (Manual) Monocytes % Monocytes % (Manual) Eosinophils % Basophils % Nucleated RBC % PT with INR INR PTT (Actin FS) Sodium 140 Potassium 3.4 L Chloride 107 Carbon Dioxide 26 Anion Gap 7 L BUN 18 Creatinine 1.4 H Creat Clearance w eGFR 49.68 POC Glucometer Random Glucose 113 H Lactic Acid 1.0 Calcium 8.8 Phosphorus 3.5 Magnesium 2.2 Total Bilirubin 1.2 H Direct Bilirubin 0.4 H AST 18 ALT 16 Alkaline Phosphatase 76 Troponin I < 0.02 Total Protein 6.3 L Albumin 3.2 L Total Amylase 75 Lipase 101 Urine Color Urine Appearance Urine pH Ur Specific [place] Urine Protein Urine Glucose (UA) Urine Ketones Urine Blood Urine Nitrite Urine Bilirubin Urine Urobilinogen Ur Leukocyte Esterase Urine WBC (Auto) Urine RBC (Auto) Urine Casts (Auto) U Pathogenic Cast Auto U Epithel Cells (Auto) Urine Bacteria (Auto) Blood Type Antibody Screen 0310/09/18 10/09/18 08:30 09:30 12:49 WBC 19.2 H RBC 4.77 Hgb 13.6 Hct 41.1 MCV 86.1 MCH 28.4 MCHC 33.0 RDW 13.8 Plt Count 183 MPV 8.3 Absolute Neuts (auto) 15.8 H Total Counted Neutrophils % 82.4 Neutrophils % (Manual) Band Neutrophils % Lymphocytes % 6.3 L D Lymphocytes % (Manual) Monocytes % 10.0 Monocytes % (Manual) Eosinophils % 0.8 D Basophils % 0.5 Nucleated RBC % 0 PT with INR 15.50 H INR 1.31 H PTT (Actin FS) Sodium Potassium Chloride Carbon Dioxide Anion Gap BUN Creatinine Creat Clearance w eGFR POC Glucometer Random Glucose Lactic Acid Calcium Phosphorus Magnesium Total Bilirubin Direct Bilirubin AST ALT Alkaline Phosphatase Troponin I Total Protein Albumin Total Amylase Lipase Urine Color Urine Appearance Urine pH Ur Specific [place] Urine Protein Urine Glucose (UA) Urine Ketones Urine Blood Urine Nitrite Urine Bilirubin Urine Urobilinogen Ur Leukocyte Esterase Urine WBC (Auto) Urine RBC (Auto) Urine Casts (Auto) U Pathogenic Cast Auto U Epithel Cells (Auto) Urine Bacteria (Auto) Blood Type O POSITIVE Antibody Screen 10/09/18 17:03 WBC RBC Hgb Hct MCV MCH MCHC RDW Plt Count MPV Absolute Neuts (auto) Total Counted Neutrophils % Neutrophils % (Manual) Band Neutrophils % Lymphocytes % Lymphocytes % (Manual) Monocytes % Monocytes % (Manual) Eosinophils % Basophils % Nucleated RBC % PT with INR INR PTT (Actin FS) Sodium Potassium Chloride Carbon Dioxide Anion Gap BUN Creatinine Creat Clearance w eGFR POC Glucometer 99 Random Glucose Lactic Acid Calcium Phosphorus Magnesium Total Bilirubin Direct Bilirubin AST ALT Alkaline Phosphatase Troponin I Total Protein Albumin Total Amylase Lipase Urine Color Urine Appearance Urine pH Ur Specific [place] Urine Protein Urine Glucose (UA) Urine Ketones Urine Blood Urine Nitrite Urine Bilirubin Urine Urobilinogen Ur Leukocyte Esterase Urine WBC (Auto) Urine RBC (Auto) Urine Casts (Auto) U Pathogenic Cast Auto U Epithel Cells (Auto) Urine Bacteria (Auto) Blood Type Antibody Screen Active Medications Generic Name Dose Route Start Last Admin Trade Name Freq PRN Reason Stop Dose Admin Heparin Sodium (Porcine) 5,000 unit 10/09/18 06:00 Heparin - SQ TID [facility]ITAL[facility] Ceftriaxone Sodium 1 gm/ 50 mls @ 100 mls/hr 10/09/18 10:00 10/09/18 14:02 Dextrose IVPB 100 mls/hr DAILY [facility] Administration Protocol Metronidazole 500 mg in 100 mls @ 100 mls/hr 10/09/18 10:00 10/09/18 17:38 Flagyl 500mg Premixed Ivpb - IVPB 100 mls/hr Q8H-IV [facility]ITAL[facility] Administration Dextrose/Lactated Ringer's 1,000 mls @ 100 mls/hr 10/09/18 16:45 10/09/18 16: 51 D5-Lr - IV 100 mls/hr ASDIR [facility] Administration Metoprolol Succinate 25 mg 10/09/18 10:00 10/09/18 12:35 Toprol Xl - PO 25 mg BID [facility] Administration Ondansetron HCl 4 mg 10/09/18 05:44 Zofran Injection IVPUSH Q6H PRN NAUSEA ASSESSMENT/PLAN: 73 year old male with PMHx of L kidney cancer s/p nephrectomy, CKD stage III ( Cr around 1.6-1.7), HTN admitted with RUQ abdominal pain, found with acute cholecystitis and mild pancreatitis. #abdominal pain secondary to acute cholelithiasis/pancreatitis? -IR drain cholecystostomy tube placement -Dr Haynes following -IVF, NPO #sepsis; sec to acute cholecystiitits -iv ceftriaxone/flagyl -bld cx #DM -insulin ss bgm #CKD stage III (baseline Cr around 1.6-1.7) #HTN #Left kidney cancer s/p nephrectomy VTE: hepatin sq Visit type - Emergency Visit Emergency Visit: Yes ED Registration Date: 10/09/18 Care time: The patient presented to the Emergency Department on the above date and was hospitalized for further evaluation of their emergent condition. - New Patient This patient is new to me today: Yes Date on this admission: 10/09/18 - Critical Care Critical Care patient: No
[2018-10-09] MEDS: ACETAMINOPHEN 325 MG TABLET (FP) PO PRN (21:26)
[2018-10-09] MEDS: HEPARIN NA (PORCINE) 5,000 UNITS/ML 1ML VIAL SQ SCH (22:43)
[2018-10-10] MEDS: ACETAMINOPHEN 325 MG TABLET (FP) PO PRN (06:10)
[2018-10-10] MEDS ORDERED: cefTRIAXone SODIUM 1 GM VIAL ONE (09:16)
[2018-10-10] MEDS ORDERED: DEXTROSE 5%-WATER - 50 ML IVPB ONE (09:16)
[2018-10-10] MEDS: metoPROLOL SUCCINATE 25 MG TAB.SR.24H (FP) PO SCH ×2 (09:21→21:49)
[2018-10-10 09:52] LABS: BASO % 0.3 % (0-2.0); EOS % 2.8 % (0-4.5); HEMATOCRIT 39.7 % (35.4-49); HEMOGLOBIN 13.3 GM/dL (11.7-16.9); LYMPH % 9.8 % (8-40); MCH 28.9 pg (25.7-33.7); MCHC 33.5 g/dl (32.0-35.9); MEAN CELL VOLUME 86.5 fl (80-96); MEAN PLT VOLUME 7.9 fl (7.5-11.1); MONO % 7.1 % (3.8-10.2); PLATELET COUNT 174 K/MM3 (134-434); RBC 4.59 M/mm3 (4.00-5.60); RDW 13.6 % (11.9-15.9); WHITE BLOOD COUNT 12.7 K/mm3 (4.0-10.0)
[2018-10-10 10:24] LABS: ALBUMIN 2.8 g/dl (3.4-5.0); ALK PHOS 77 U/L (45-117); ANION GAP 7 MMOL/L (8-16); BILIRUBIN,DIRECT 0.3 mg/dL (0.0-0.2); BILIRUBIN,TOTAL 0.9 mg/dL (0.2-1); BLOOD UREA NITROGEN 19 mg/dL (7-18); CALCIUM 8.2 mg/dL (8.5-10.1); CHLORIDE 109 mmol/L (98-107); CO2 28 mmol/L (21-32); CREATININE 1.4 mg/dL (0.55-1.3); GLUCOSE,RANDOM 108 mg/dL (74-106); POTASSIUM 3.4 mmol/L (3.5-5.1); SGOT/AST 18 U/L (15-37); SGPT/ALT 15 U/L (13-61); SODIUM 144 mmol/L (136-145)
[2018-10-10] MEDS: CEFTRIAXONE 1 GM in DEXTROSE 5%-WATER - 50 ML IVPB SCH (10:35)
--- NOTE | 2018-10-10 12:00 | PN ---
Physical Exam: SUBJECTIVE: Patient seen and examined, abdominal pain better. no nausea, vomiting, fevers or chills. Asking if can eat. OBJECTIVE: Vital Signs Period Temp Pulse Resp BP Sys/Capellan Pulse Ox Last 24 Hr 98 F-100.2 F 64-72 14-21 122-146/62-82 96-97 Intake & Output 10/07/18 10/08/18 10/09/18 10/10/18 23:59 23:59 23:59 23:59 Intake Total 1050 1200 Output Total 2250 100 Balance -1200 1100 Weight 168 lb GENERAL: The patient is awake, alert, and fully oriented, in no acute distress. HEAD: Normal with no signs of trauma. EYES: PERRL, extraocular movements intact, sclera anicteric, conjunctiva clear. No ptosis. ENT: Ears normal, nares patent, oropharynx clear without exudates, moist mucous membranes. NECK: Trachea midline, full range of motion, supple. LUNGS: Breath sounds equal, clear to auscultation bilaterally, no wheezes, no crackles, no accessory muscle use. HEART: Regular rate and rhythm, S1, S2 ABDOMEN: soft, RUQ tenderness at drain site, improved exam, non distended, positive bowel sounds EXTREMITIES: 2+ pulses, warm, well-perfused, no edema. PSYCH: Normal mood, normal affect. SKIN: Warm, dry, normal turgor, no rashes or lesions noted Laboratory Results - last 24 hr 10/09/18 10/09/18 10/10/18 12:49 17:03 07:30 WBC RBC Hgb Hct MCV MCH MCHC RDW Plt Count MPV Absolute Neuts (auto) Neutrophils % Lymphocytes % Monocytes % Eosinophils % Basophils % Nucleated RBC % PT with INR 15.50 H INR 1.31 H Sodium Potassium Chloride Carbon Dioxide Anion Gap BUN Creatinine Creat Clearance w eGFR POC Glucometer 99 Random Glucose Hemoglobin A1c % 6.0 Calcium Total Bilirubin Direct Bilirubin AST ALT Alkaline Phosphatase Total Protein Albumin 10/10/18 10/10/18 10/10/18 07:30 07:30 11:45 WBC 12.7 H RBC 4.59 Hgb 13.3 Hct 39.7 MCV 86.5 MCH 28.9 MCHC 33.5 RDW 13.6 Plt Count 174 MPV 7.9 Absolute Neuts (auto) 10.1 H Neutrophils % 80.0 Lymphocytes % 9.8 D Monocytes % 7.1 Eosinophils % 2.8 D Basophils % 0.3 Nucleated RBC % 0 PT with INR INR Sodium 144 Potassium 3.4 L Chloride 109 H Carbon Dioxide 28 Anion Gap 7 L BUN 19 H Creatinine 1.4 H Creat Clearance w eGFR 49.68 POC Glucometer 116 Random Glucose 108 H Hemoglobin A1c % Calcium 8.2 L Total Bilirubin 0.9 Direct Bilirubin 0.3 H AST 18 ALT 15 Alkaline Phosphatase 77 Total Protein 6.0 L Albumin 2.8 L Active Medications Generic Name Dose Route Start Last Admin Trade Name Freq PRN Reason Stop Dose Admin Acetaminophen 650 mg 10/09/18 21:15 10/10/18 06:10 Tylenol - PO 650 mg Q6H PRN Administration Fever Or Pain Heparin Sodium (Porcine) 5,000 unit 10/09/18 06:00 10/09/18 22:43 Heparin - SQ Not Given TID [facility] Ceftriaxone Sodium 1 gm/ 50 mls @ 100 mls/hr 10/09/18 10:00 10/10/18 10:35 Dextrose IVPB 100 mls/hr DAILY [facility] Administration Protocol Metronidazole 500 mg in 100 mls @ 100 mls/hr 10/09/18 10:00 10/10/18 09:21 Flagyl 500mg Premixed Ivpb - IVPB 100 mls/hr Q8H-IV [facility]ITAL[facility] Administration Dextrose/Lactated Ringer's 1,000 mls @ 100 mls/hr 10/09/18 16:45 10/09/18 16: 51 D5-Lr - IV 100 mls/hr ASDIR [facility]ITAL[facility] Administration Potassium Chloride 10 meq in 100 mls @ 100 mls/hr 10/10/18 12:00 Potassium Chloride 10 Meq Premix Ivpb - IVPB 10/10/18 13:59 Q60M VITALIY Metoprolol Succinate 25 mg 10/09/18 10:00 10/10/18 09:21 Toprol Xl - PO 25 mg BID [facility] Administration Nifedipine 90 mg 10/10/18 12:00 Procardia Xl - PO DAILY [facility] Ondansetron HCl 4 mg 10/09/18 05:44 Zofran Injection IVPUSH Q6H PRN NAUSEA Home Medications Medication Instructions Recorded Aspirin 81 mg PO DAILY 10/26/12 Docosahexanoic Acid/Epa [Fish Oil 1 each PO DAILY 10/26/12 Softgel] Hydrochlorothiazide [Hctz] 25 mg PO DAILY 10/26/12 Metoprolol Succinate [Toprol XL] 50 mg PO DAILY 10/26/12 Multivitamin with Minerals [Men's 1 each PO DAILY 10/26/12 One Daily] Nifedipine [Nifedipine ER] 90 mg PO DAILY 10/26/12 Potassium Chloride Oral Soln [KCl 20 meq PO DAILY 10/26/12 *Liquid*] Alfuzosin HCl [Alfuzosin HCl ER] 10 mg PO DAILY 10/09/18 Microbiology 10/09/18 11:50 Body Fluid - Other Gram Stain - Final 10/09/18 11:50 Body Fluid - Other Body Fluid Culture - Preliminary NO AEROBIC GROWTH, 24 HRS 10/09/18 12:51 Body Fluid - Other FRANCO Preparation - Preliminary 10/09/18 12:51 Body Fluid - Other Fungal Culture - Preliminary ASSESSMENT/PLAN: 73 yom with PMHx of L kidney cancer s/p nephrectomy, CKD stage III (Cr around 1.6-1.7), HTN admitted with RUQ abdominal pain, found with acute cholecystitis and mild pancreatitis. -Acute cholecystitis/Pancreatitis around the head, with sepsis -Hypokalemia -Cholelithiasis -CKD stage III (baseline Cr around 1.6-1.7) -HTN -Left kidney cancer s/p nephrectomy -Hyperglycemia Plan: ceftriaxone/flagyl day 2. Fevers improved, WBC better. s/p IR guided cholcystostomy tube placement 10/09. Advance diet per surgery. Blood cx neg so far. IVF, k supplementation. Continue metoprolol. Resume nifedipine. renal function stable. dvTPPX heparin Dispo pending clinical improvement. Plan discussed with patient and nursing in detail, all questions answered. Visit type - Emergency Visit Emergency Visit: Yes ED Registration Date: 10/09/18 Care time: The patient presented to the Emergency Department on the above date and was hospitalized for further evaluation of their emergent condition. - New Patient This patient is new to me today: No - Critical Care Critical Care patient: No - Discharge Referral Referred to [facility] Med P.C.: No
[2018-10-10] MEDS: KCL 10 MEQ IVPB 10 MEQ/100 ML INFUS.BAG IVPB SCH ×2 (12:06→14:59)
[2018-10-10] MEDS: NIFEdipine E.R. 30 MG TABLET (FP) PO SCH (12:06)
[2018-10-10] MEDS: HEPARIN NA (PORCINE) 5,000 UNITS/ML 1ML VIAL SQ SCH ×2 (14:59→21:48)
--- NOTE | 2018-10-10 18:26 | PN ---
Progress Note, Physician - Current Medication List Current Medications: Active Medications Acetaminophen (Tylenol -) 650 mg PO Q6H PRN PRN Reason: Fever Or Pain Last Admin: 10/10/18 06:10 Dose: 650 mg Heparin Sodium (Porcine) (Heparin -) 5,000 unit SQ TID [facility] Last Admin: 10/10/18 14:59 Dose: 5,000 unit Ceftriaxone Sodium 1 gm/ (Dextrose) 50 mls @ 100 mls/hr IVPB DAILY [facility]; Protocol Last Admin: 10/10/18 10:35 Dose: 100 mls/hr Metronidazole (Flagyl 500mg Premixed Ivpb -) 500 mg in 100 mls @ 100 mls/hr IVPB Q8H-IV [facility]ITAL[facility] Last Admin: 10/10/18 09:21 Dose: 100 mls/hr Dextrose/Lactated Ringer's (D5-Lr -) 1,000 mls @ 100 mls/hr IV ASDIR [facility] Last Admin: 10/09/18 16:51 Dose: 100 mls/hr Metoprolol Succinate (Toprol Xl -) 25 mg PO BID [facility] Last Admin: 10/10/18 09:21 Dose: 25 mg Nifedipine (Procardia Xl -) 90 mg PO DAILY [facility] Last Admin: 10/10/18 12:06 Dose: 90 mg Ondansetron HCl (Zofran Injection) 4 mg IVPUSH Q6H PRN PRN Reason: NAUSEA - Objective Vital Signs: Vital Signs Temperature 98.3 F 10/10/18 15:15 Pulse Rate 68 10/10/18 15:15 Respiratory Rate 16 10/10/18 08:15 Blood Pressure 143/78 10/10/18 15:15 O2 Sat by Pulse Oximetry (%) 96 10/10/18 09:00 Labs: CBC, BMP 10/10/18 07:30 10/10/18 07:30 INR, PTT INR 1.31 (0.83-1.09) H 10/09/18 12:49 Problem List - Problems (1) Cholelithiasis and acute cholecystitis with obstruction Code(s): K80.01 - CALCULUS OF GALLBLADDER W ACUTE CHOLECYSTITIS W OBSTRUCTION (2) Renal dysfunction Code(s): N28.9 - DISORDER OF KIDNEY AND URETER, UNSPECIFIED (3) Hypokalemia Code(s): E87.6 - HYPOKALEMIA (4) Hyperglycemia Code(s): R73.9 - HYPERGLYCEMIA, UNSPECIFIED (5) Leucocytosis Code(s): D72.829 - ELEVATED WHITE BLOOD CELL COUNT, UNSPECIFIED Assessment/Plan Surgery: Patient is feeling better . Abdomen is soft , not tender. WBC remains elevated, Cretinine still elevated. Galbladder drained , drainage tube is draining , bilious , and bloody fluid. Resume oral feeding. Patient is informed that the biliary drainage will remain for a few weeks, and cholecystectomy will be scheduled in abiut 3 months from now, when all inflammation has subsided. Continue antibiotics, resume feeding.
[2018-10-11] MEDS: DEXTROSE 5%-LACTATED RINGERS 1,000 ML IV SCH ×2 (02:40→10:08)
[2018-10-11] MEDS: HEPARIN NA (PORCINE) 5,000 UNITS/ML 1ML VIAL SQ SCH ×4 (05:46→21:12)
[2018-10-11 08:21] LABS: BASO % 0.6 % (0-2.0); EOS % 5.3 % (0-4.5); HEMATOCRIT 41.1 % (35.4-49); HEMOGLOBIN 13.5 GM/dL (11.7-16.9); LYMPH % 13.6 % (8-40); MCH 27.9 pg (25.7-33.7); MCHC 32.8 g/dl (32.0-35.9); MEAN CELL VOLUME 85.1 fl (80-96); MEAN PLT VOLUME 8.2 fl (7.5-11.1); MONO % 7.8 % (3.8-10.2); NEUT % 72.7 % (42.8-82.8); PLATELET COUNT 203 K/MM3 (134-434); RBC 4.83 M/mm3 (4.00-5.60); RDW 13.7 % (11.9-15.9); WHITE BLOOD COUNT 9.1 K/mm3 (4.0-10.0)
[2018-10-11 09:05] LABS: ALBUMIN 2.8 g/dl (3.4-5.0); ALK PHOS 88 U/L (45-117); ANION GAP 8 MMOL/L (8-16); BILIRUBIN,TOTAL 0.5 mg/dL (0.2-1); BLOOD UREA NITROGEN 16 mg/dL (7-18); CALCIUM 8.2 mg/dL (8.5-10.1); CHLORIDE 110 mmol/L (98-107); CO2 26 mmol/L (21-32); CREATININE 1.2 mg/dL (0.55-1.3); GLUCOSE,RANDOM 120 mg/dL (74-106); POTASSIUM 3.3 mmol/L (3.5-5.1); SGOT/AST 15 U/L (15-37); SGPT/ALT 12 U/L (13-61); SODIUM 144 mmol/L (136-145)
[2018-10-11] MEDS ORDERED: DEXTROSE 5%-WATER - 50 ML IVPB ONE (09:55)
[2018-10-11] MEDS ORDERED: cefTRIAXone SODIUM 1 GM VIAL ONE (09:55)
[2018-10-11] MEDS: NIFEdipine E.R. 30 MG TABLET (FP) PO SCH (10:04)
[2018-10-11] MEDS: metoPROLOL SUCCINATE 25 MG TAB.SR.24H (FP) PO SCH ×2 (10:04→21:06)
[2018-10-11] MEDS ORDERED: POTASSIUM CHLORIDE TABS 20 MEQ TABLET.ER (FP) PO ONE (11:33)
--- NOTE | 2018-10-11 11:36 | PN ---
Physical Exam: SUBJECTIVE: Patient seen and examined, abdominal pain improved. No fevers, chills, nausea or vomitting. Tolerating diet well. OBJECTIVE: Vital Signs Period Temp Pulse Resp BP Sys/Capellan Pulse Ox Last 24 Hr 98.2 F-98.7 F 66-79 14-20 120-145/67-78 96-96 GENERAL: The patient is awake, alert, and fully oriented, in no acute distress. HEAD: Normal with no signs of trauma. EYES: PERRL, extraocular movements intact, sclera anicteric, conjunctiva clear. No ptosis. ENT: Ears normal, nares patent, oropharynx clear without exudates, moist mucous membranes. NECK: Trachea midline, full range of motion, supple. LUNGS: Breath sounds equal, clear to auscultation bilaterally, no wheezes, no crackles, no accessory muscle use. HEART: Regular rate and rhythm, S1, S2 ABDOMEN: soft, RUQ tenderness at drain site, improved exam, non distended, normoactive bowel sounds EXTREMITIES: 2+ pulses, warm, well-perfused, no edema. PSYCH: Normal mood, normal affect. SKIN: Warm, dry, normal turgor, no rashes or lesions noted Laboratory Results - last 24 hr 10/10/18 10/10/18 10/10/18 11:45 16:25 22:58 WBC RBC Hgb Hct MCV MCH MCHC RDW Plt Count MPV Absolute Neuts (auto) Neutrophils % Lymphocytes % Monocytes % Eosinophils % Basophils % Nucleated RBC % Sodium Potassium Chloride Carbon Dioxide Anion Gap BUN Creatinine Creat Clearance w eGFR POC Glucometer 116 90 109 Random Glucose Calcium Phosphorus Magnesium Total Bilirubin AST ALT Alkaline Phosphatase Total Protein Albumin 10/11/18 10/11/18 10/11/18 05:41 07:00 07:00 WBC 9.1 RBC 4.83 Hgb 13.5 Hct 41.1 MCV 85.1 MCH 27.9 MCHC 32.8 RDW 13.7 Plt Count 203 MPV 8.2 Absolute Neuts (auto) 6.6 Neutrophils % 72.7 Lymphocytes % 13.6 D Monocytes % 7.8 Eosinophils % 5.3 H D Basophils % 0.6 Nucleated RBC % 0 Sodium 144 Potassium 3.3 L Chloride 110 H Carbon Dioxide 26 Anion Gap 8 BUN 16 Creatinine 1.2 Creat Clearance w eGFR 59.18 POC Glucometer 114 Random Glucose 120 H Calcium 8.2 L Phosphorus 2.0 L Magnesium 2.0 Total Bilirubin 0.5 AST 15 ALT 12 L Alkaline Phosphatase 88 Total Protein 6.0 L Albumin 2.8 L Active Medications Generic Name Dose Route Start Last Admin Trade Name Freq PRN Reason Stop Dose Admin Acetaminophen 650 mg 10/09/18 21:15 10/10/18 06:10 Tylenol - PO 650 mg Q6H PRN Administration Fever Or Pain Heparin Sodium (Porcine) 5,000 unit 10/09/18 06:00 10/11/18 05:46 Heparin - SQ 5,000 unit TID VITALIY Administration Ceftriaxone Sodium 1 gm/ 50 mls @ 100 mls/hr 10/09/18 10:00 10/10/18 10:35 Dextrose IVPB 100 mls/hr DAILY VITALIY Administration Protocol Metronidazole 500 mg in 100 mls @ 100 mls/hr 10/09/18 10:00 10/11/18 10:04 Flagyl 500mg Premixed Ivpb - IVPB 100 mls/hr Q8H-IV VITALIY Administration Metoprolol Succinate 25 mg 10/09/18 10:00 10/11/18 10:04 Toprol Xl - PO 25 mg BID VITALIY Administration Nifedipine 90 mg 10/10/18 12:00 10/11/18 10:04 Procardia Xl - PO 90 mg DAILY VITALIY Administration Ondansetron HCl 4 mg 10/09/18 05:44 Zofran Injection IVPUSH Q6H PRN NAUSEA Potassium Phos/Sodium Phos 2 packet 10/11/18 11:45 Phos-Nak Packet - PO 10/12/18 22:01 BID [facility] Home Medications Medication Instructions Recorded Aspirin 81 mg PO DAILY 10/26/12 Docosahexanoic Acid/Epa [Fish Oil 1 each PO DAILY 10/26/12 Softgel] Hydrochlorothiazide [Hctz] 25 mg PO DAILY 10/26/12 Metoprolol Succinate [Toprol XL] 50 mg PO DAILY 10/26/12 Multivitamin with Minerals [Men's 1 each PO DAILY 10/26/12 One Daily] Nifedipine [Nifedipine ER] 90 mg PO DAILY 10/26/12 Potassium Chloride Oral Soln [KCl 20 meq PO DAILY 10/26/12 *Liquid*] Alfuzosin HCl [Alfuzosin HCl ER] 10 mg PO DAILY 10/09/18 Microbiology 10/09/18 11:50 Body Fluid - Other Gram Stain - Final 10/09/18 11:50 Body Fluid - Other Body Fluid Culture - Final NO GROWTH OF AEROBIC ORGANISMS AFTER 48 HOURS INCUBATION 10/09/18 11:50 Body Fluid - Other Anaerobic Culture - Final NO ANAEROBES WERE ISOLATED 10/09/18 12:51 Body Fluid - Other FRANCO Preparation - Preliminary 10/09/18 12:51 Body Fluid - Other Fungal Culture - Preliminary ASSESSMENT/PLAN: 73 yom with PMHx of L kidney cancer s/p nephrectomy, CKD stage III (Cr around 1.6-1.7), HTN admitted with RUQ abdominal pain, found with acute cholecystitis and mild pancreatitis. -Acute cholecystitis/Pancreatitis around the head, with sepsis s/p cholecystostomy tube placement 10/09 -Hypokalemia -Hypophosphatemia -Cholelithiasis -CKD stage III (baseline Cr around 1.6-1.7) -HTN -Left kidney cancer s/p nephrectomy -Hyperglycemia Plan: ceftriaxone/flagyl day 3. Fluid cultures neg so far. BLood cx neg WBC resolved, clinically improved, tolerating diet well. Discussed with Dr. Haynes, plan for d/c with cholecystostomy tube and outpatient follow for surgery in 3 months once active inflammation resolves. Will transition to augment in 24 hours for 7-10 day course. d/c IVF. Replete K/Phos. Continue metoprolol/nifedipine. Alfuzocin non formulary, patient advised to have family bring from home. Renal function stable. dvTPPX heparin PT eval Dispo patient lives with and daughter, ambulating. Anticipate home dc with services in 24 hours on po abx with outpatient surgery follow up. Plan discussed with patient, nursing and CM in detail, all questions answered. Visit type - Emergency Visit Emergency Visit: Yes ED Registration Date: 10/09/18 Care time: The patient presented to the Emergency Department on the above date and was hospitalized for further evaluation of their emergent condition. - New Patient This patient is new to me today: No - Critical Care Critical Care patient: No - Discharge Referral Referred to [facility] Med P.C[facility] No
[2018-10-11] MEDS: CEFTRIAXONE 1 GM in DEXTROSE 5%-WATER - 50 ML IVPB SCH (11:38)
[2018-10-11] MEDS: NAPH,MB-DB/K PH,MBDB POWDER PACKET PO SCH ×2 (11:41→21:06)
[2018-10-12] MEDS: HEPARIN NA (PORCINE) 5,000 UNITS/ML 1ML VIAL SQ SCH ×3 (05:56→21:03)
[2018-10-12 07:34] LABS: BASO % 0.9 % (0-2.0); EOS % 6.4 % (0-4.5); HEMOGLOBIN 13.7 GM/dL (11.7-16.9); LYMPH % 9.4 % (8-40); MCH 27.8 pg (25.7-33.7); MCHC 32.7 g/dl (32.0-35.9); MEAN CELL VOLUME 84.9 fl (80-96); MONO % 10.1 % (3.8-10.2); NEUT % 73.2 % (42.8-82.8); PLATELET COUNT 224 K/MM3 (134-434); RBC 4.95 M/mm3 (4.00-5.60); RDW 13.6 % (11.9-15.9); WHITE BLOOD COUNT 6.3 K/mm3 (4.0-10.0)
[2018-10-12 08:01] LABS: ALBUMIN 2.9 g/dl (3.4-5.0); ALK PHOS 97 U/L (45-117); ANION GAP 10 MMOL/L (8-16); BILIRUBIN,TOTAL 0.5 mg/dL (0.2-1); BLOOD UREA NITROGEN 12 mg/dL (7-18); CALCIUM 8.3 mg/dL (8.5-10.1); CHLORIDE 109 mmol/L (98-107); CO2 25 mmol/L (21-32); CREATININE 1.2 mg/dL (0.55-1.3); GLUCOSE,RANDOM 113 mg/dL (74-106); MAGNESIUM 1.8 mg/dL (1.8-2.4); PHOSPHOROUS 2.9 mg/dL (2.5-4.9); POTASSIUM 3.2 mmol/L (3.5-5.1); SGOT/AST 28 U/L (15-37); SGPT/ALT 15 U/L (13-61); SODIUM 143 mmol/L (136-145)
[2018-10-12] MEDS ORDERED: cefTRIAXone SODIUM 1 GM VIAL ONE (10:05)
[2018-10-12] MEDS ORDERED: DEXTROSE 5%-WATER - 50 ML IVPB ONE (10:05)
[2018-10-12] MEDS: metoPROLOL SUCCINATE 25 MG TAB.SR.24H (FP) PO SCH ×2 (10:11→21:03)
[2018-10-12] MEDS: NIFEdipine E.R. 30 MG TABLET (FP) PO SCH (10:11)
[2018-10-12] MEDS: CEFTRIAXONE 1 GM in DEXTROSE 5%-WATER - 50 ML IVPB SCH (10:11)
[2018-10-12] MEDS: NAPH,MB-DB/K PH,MBDB POWDER PACKET PO SCH ×2 (10:11→21:03)
--- NOTE | 2018-10-12 13:53 | PN ---
Teaching Attending Note Name of Resident: Myrna Fajardo ATTENDING PHYSICIAN STATEMENT I saw and evaluated the patient. I reviewed the resident's note and discussed the case with the resident. I agree with the resident's findings and plan as documented with exceptions below. SUBJECTIVE: Patient seen and examined, denies any nausea, vomiting, abdominal pain or diarrhea. Tolerating diet well. OBJECTIVE: Vital Signs Period Temp Pulse Resp BP Sys/Capellan Pulse Ox Last 24 Hr 98.7 F-99.9 F 65-88 18-20 128-149/73-93 97 Intake & Output 10/09/18 10/10/18 10/11/18 10/12/18 23:59 23:59 23:59 23:59 Intake Total 1050 2350 2450 Output Total 2250 500 420 17 Balance -1200 1850 2029 Weight 168 lb General: sitting in bed in no acute distress Chest: CTAB, no rales or wheezing Abdomen:Soft, mild tenderness around the cholecystostomy tube, no voluntary or involuntary guarding or rigidity, normoactive bowel sounds Extremities: no edema Home Medications Medication Instructions Recorded Aspirin 81 mg PO DAILY 10/26/12 Docosahexanoic Acid/Epa [Fish Oil 1 each PO DAILY 10/26/12 Softgel] Hydrochlorothiazide [Hctz] 25 mg PO DAILY 10/26/12 Metoprolol Succinate [Toprol XL] 50 mg PO DAILY 10/26/12 Multivitamin with Minerals [Men's 1 each PO DAILY 10/26/12 One Daily] Nifedipine [Nifedipine ER] 90 mg PO DAILY 10/26/12 Potassium Chloride Oral Soln [KCl 20 meq PO DAILY 10/26/12 *Liquid*] Alfuzosin HCl [Alfuzosin HCl ER] 10 mg PO DAILY 10/09/18 Active Medications Acetaminophen (Tylenol -) 650 mg PO Q6H PRN PRN Reason: Fever Or Pain Last Admin: 10/10/18 06:10 Dose: 650 mg Heparin Sodium (Porcine) (Heparin -) 5,000 unit SQ TID VITALIY Last Admin: 10/12/18 05:56 Dose: 5,000 unit Ceftriaxone Sodium 1 gm/ (Dextrose) 50 mls @ 100 mls/hr IVPB DAILY VITALIY; Protocol Last Admin: 10/12/18 10:11 Dose: 100 mls/hr Metronidazole (Flagyl 500mg Premixed Ivpb -) 500 mg in 100 mls @ 100 mls/hr IVPB Q8H-IV VITALIY Last Admin: 10/12/18 11:29 Dose: 100 mls/hr Metoprolol Succinate (Toprol Xl -) 25 mg PO BID [facility] Last Admin: 10/12/18 10:11 Dose: 25 mg Nifedipine (Procardia Xl -) 90 mg PO DAILY [facility] Last Admin: 10/12/18 10:11 Dose: 90 mg Ondansetron HCl (Zofran Injection) 4 mg IVPUSH Q6H PRN PRN Reason: NAUSEA Potassium Phos/Sodium Phos (Phos-Nak Packet -) 2 packet PO BID [facility] Stop: 10/12/18 22:01 Last Admin: 10/12/18 10:11 Dose: 2 packet Laboratory Results - last 24 hr 10/12/18 10/12/18 07:00 07:00 WBC 6.3 RBC 4.95 Hgb 13.7 Hct 42.0 MCV 84.9 MCH 27.8 MCHC 32.7 RDW 13.6 Plt Count 224 MPV 8.0 Absolute Neuts (auto) 4.6 Neutrophils % 73.2 Lymphocytes % 9.4 D Monocytes % 10.1 Eosinophils % 6.4 H Basophils % 0.9 Nucleated RBC % 0 Sodium 143 Potassium 3.2 L Chloride 109 H Carbon Dioxide 25 Anion Gap 10 BUN 12 Creatinine 1.2 Creat Clearance w eGFR 59.18 Random Glucose 113 H Calcium 8.3 L Phosphorus 2.9 Magnesium 1.8 Total Bilirubin 0.5 AST 28 ALT 15 Alkaline Phosphatase 97 Total Protein 6.0 L Albumin 2.9 L Microbiology 10/09/18 11:50 Body Fluid - Other AFB Smear Concentration - Preliminary 10/09/18 11:50 Body Fluid - Other Mycobacterial Culture - Preliminary 10/09/18 11:50 Body Fluid - Other Gram Stain - Final 10/09/18 11:50 Body Fluid - Other Body Fluid Culture - Final NO GROWTH OF AEROBIC ORGANISMS AFTER 48 HOURS INCUBATION 10/09/18 11:50 Body Fluid - Other Anaerobic Culture - Final NO ANAEROBES WERE ISOLATED 10/09/18 12:51 Body Fluid - Other FRANCO Preparation - Preliminary 10/09/18 12:51 Body Fluid - Other Fungal Culture - Preliminary ASSESSMENT AND PLAN: 73 yom with PMHx of L kidney cancer s/p nephrectomy, CKD stage III (Cr around 1.6-1.7), HTN admitted with RUQ abdominal pain, found with acute cholecystitis and mild pancreatitis. -Acute cholecystitis/Pancreatitis around the head, with sepsis s/p cholecystostomy tube placement 10/09 -Hypokalemia -Hypophosphatemia -Cholelithiasis -CKD stage III (baseline Cr around 1.6-1.7) -HTN -Left kidney cancer s/p nephrectomy -Hyperglycemia Plan: ceftriaxone/flagyl day 4. Fluid cultures neg so far. BLood cx neg WBC resolved, clinically improved, tolerating diet well. Tmax 99.9. Discussed with Dr. Haynes, plan for d/c with cholecystostomy tube and outpatient follow for surgery in 3 months once active inflammation resolves. Will transition to ceftin/flagyl in 24 hours for 7-10 days if no concerns. Replete K/Phos prn. Continue metoprolol/nifedipine. Alfuzocin non formulary, patient advised to have family bring from home. Renal function stable. dvTPPX heparin PT eval Dispo patient lives with and daughter, ambulating. Anticipate home dc with services in 24 hours on po abx and VNS with outpatient surgery follow up if afebrile and no new concerns. Plan discussed with patient, nursing and CM in detail, all questions answered.
--- NOTE | 2018-10-12 14:48 | PN ---
Physical Exam: SUBJECTIVE: Patient seen and examined; febrile ON; no pain; wbc wnl OBJECTIVE: Vital Signs Period Temp Pulse Resp BP Sys/Capellan Pulse Ox Last 24 Hr 98.7 F-99.9 F 65-88 18-20 128-149/73-93 97 GENERAL: The patient is awake, alert, and fully oriented, in no acute distress. LUNGS: Breath sounds equal, clear to auscultation bilaterally, no wheezes, no crackles, no accessory muscle use. HEART: Regular rate and rhythm, S1, S2 without murmur, rub or gallop. ABDOMEN: Soft, nontender,+distended but improved; with gallbladder drain with serosangiounous fluids; EXTREMITIES: 2+ pulses, warm, well-perfused, no edema. NEUROLOGICAL: Cranial nerves II through XII grossly intact. Normal speech, gait not observed. Laboratory Results - last 24 hr 10/12/18 10/12/18 07:00 07:00 WBC 6.3 RBC 4.95 Hgb 13.7 Hct 42.0 MCV 84.9 MCH 27.8 MCHC 32.7 RDW 13.6 Plt Count 224 MPV 8.0 Absolute Neuts (auto) 4.6 Neutrophils % 73.2 Lymphocytes % 9.4 D Monocytes % 10.1 Eosinophils % 6.4 H Basophils % 0.9 Nucleated RBC % 0 Sodium 143 Potassium 3.2 L Chloride 109 H Carbon Dioxide 25 Anion Gap 10 BUN 12 Creatinine 1.2 Creat Clearance w eGFR 59.18 Random Glucose 113 H Calcium 8.3 L Phosphorus 2.9 Magnesium 1.8 Total Bilirubin 0.5 AST 28 ALT 15 Alkaline Phosphatase 97 Total Protein 6.0 L Albumin 2.9 L Active Medications Generic Name Dose Route Start Last Admin Trade Name Freq PRN Reason Stop Dose Admin Acetaminophen 650 mg 10/09/18 21:15 10/10/18 06:10 Tylenol - PO 650 mg Q6H PRN Administration Fever Or Pain Heparin Sodium (Porcine) 5,000 unit 10/09/18 06:00 10/12/18 14:09 Heparin - SQ 5,000 unit TID VITALIY Administration Ceftriaxone Sodium 1 gm/ 50 mls @ 100 mls/hr 10/09/18 10:00 10/12/18 10:11 Dextrose IVPB 100 mls/hr DAILY VITALIY Administration Protocol Metronidazole 500 mg in 100 mls @ 100 mls/hr 10/09/18 10:00 10/12/18 11:29 Flagyl 500mg Premixed Ivpb - IVPB 100 mls/hr Q8H-IV VITALIY Administration Metoprolol Succinate 25 mg 10/09/18 10:00 10/12/18 10:11 Toprol Xl - PO 25 mg BID VITALIY Administration Nifedipine 90 mg 10/10/18 12:00 10/12/18 10:11 Procardia Xl - PO 90 mg DAILY VITALIY Administration Ondansetron HCl 4 mg 10/09/18 05:44 Zofran Injection IVPUSH Q6H PRN NAUSEA Potassium Phos/Sodium Phos 2 packet 10/11/18 11:45 10/12/18 10:11 Phos-Nak Packet - PO 10/12/18 22:01 2 packet BID VITALIY Administration ASSESSMENT/PLAN: 73 year old male with PMHx of L kidney cancer s/p nephrectomy, CKD stage III ( Cr around 1.6-1.7), HTN admitted with RUQ abdominal pain, found with acute cholecystitis and mild pancreatitis. #abdominal pain secondary to acute cholelithiasis -monitor ON due to fever; -IR drain cholecystostomy tube placement x 3moth ; f/u in office -Dr Haynes following -IVF, NPO #sepsis; sec to acute cholecystiitits -iv ceftriaxone/flagyl; can dc on ceftin and flagyl -bld cx #DM -insulin ss bgm #CKD stage III (baseline Cr around 1.6-1.7) #HTN #Left kidney cancer s/p nephrectomy VTE; heparin sq Visit type - Emergency Visit Emergency Visit: Yes ED Registration Date: 10/09/18 Care time: The patient presented to the Emergency Department on the above date and was hospitalized for further evaluation of their emergent condition. - New Patient This patient is new to me today: No - Critical Care Critical Care patient: No
--- NOTE | 2018-10-12 16:37 | PN ---
Progress Note, Physician - Current Medication List Current Medications: Active Medications Acetaminophen (Tylenol -) 650 mg PO Q6H PRN PRN Reason: Fever Or Pain Last Admin: 10/10/18 06:10 Dose: 650 mg Heparin Sodium (Porcine) (Heparin -) 5,000 unit SQ TID [facility] Last Admin: 10/12/18 14:09 Dose: 5,000 unit Ceftriaxone Sodium 1 gm/ (Dextrose) 50 mls @ 100 mls/hr IVPB DAILY [facility]; Protocol Last Admin: 10/12/18 10:11 Dose: 100 mls/hr Metronidazole (Flagyl 500mg Premixed Ivpb -) 500 mg in 100 mls @ 100 mls/hr IVPB Q8H-IV VITALIY Last Admin: 10/12/18 11:29 Dose: 100 mls/hr Metoprolol Succinate (Toprol Xl -) 25 mg PO BID [facility] Last Admin: 10/12/18 10:11 Dose: 25 mg Nifedipine (Procardia Xl -) 90 mg PO DAILY [facility] Last Admin: 10/12/18 10:11 Dose: 90 mg Ondansetron HCl (Zofran Injection) 4 mg IVPUSH Q6H PRN PRN Reason: NAUSEA Potassium Phos/Sodium Phos (Phos-Nak Packet -) 2 packet PO BID [facility] Stop: 10/12/18 22:01 Last Admin: 10/12/18 10:11 Dose: 2 packet - Objective Vital Signs: Vital Signs Temperature 98.8 F 10/12/18 15:36 Pulse Rate 76 10/12/18 15:36 Respiratory Rate 20 10/12/18 15:36 Blood Pressure 146/83 10/12/18 15:36 O2 Sat by Pulse Oximetry (%) 97 10/11/18 21:00 Labs: CBC, BMP 10/12/18 07:00 10/12/18 07:00 INR, PTT INR 1.31 (0.83-1.09) H 10/09/18 12:49 Problem List - Problems (1) Cholelithiasis and acute cholecystitis with obstruction Code(s): K80.01 - CALCULUS OF GALLBLADDER W ACUTE CHOLECYSTITIS W OBSTRUCTION (2) Renal dysfunction Code(s): N28.9 - DISORDER OF KIDNEY AND URETER, UNSPECIFIED (3) Hypokalemia Code(s): E87.6 - HYPOKALEMIA (4) Hyperglycemia Code(s): R73.9 - HYPERGLYCEMIA, UNSPECIFIED (5) Leucocytosis Code(s): D72.829 - ELEVATED WHITE BLOOD CELL COUNT, UNSPECIFIED Assessment/Plan Patient is doing well. Cholecystostomy tube is draining. Continue antibiotics. Discharge and out patient follow up.
[2018-10-13] MEDS: HEPARIN NA (PORCINE) 5,000 UNITS/ML 1ML VIAL SQ SCH ×3 (05:43→21:42)
[2018-10-13 07:42] LABS: BASO % 1.1 % (0-2.0); EOS % 6.5 % (0-4.5); HEMATOCRIT 41.7 % (35.4-49); HEMOGLOBIN 13.9 GM/dL (11.7-16.9); LYMPH % 11.1 % (8-40); MCH 28.3 pg (25.7-33.7); MCHC 33.3 g/dl (32.0-35.9); MONO % 13.6 % (3.8-10.2); NEUT % 67.7 % (42.8-82.8); PLATELET COUNT 215 K/MM3 (134-434); RBC 4.91 M/mm3 (4.00-5.60); RDW 13.5 % (11.9-15.9); WHITE BLOOD COUNT 6.6 K/mm3 (4.0-10.0)
[2018-10-13 09:01] LABS: ALK PHOS 119 U/L (45-117); ANION GAP 9 MMOL/L (8-16); BILIRUBIN,TOTAL 0.5 mg/dL (0.2-1); BLOOD UREA NITROGEN 13 mg/dL (7-18); CALCIUM 8.8 mg/dL (8.5-10.1); CHLORIDE 105 mmol/L (98-107); CO2 25 mmol/L (21-32); CREATININE 1.1 mg/dL (0.55-1.3); GLUCOSE,RANDOM 97 mg/dL (74-106); MAGNESIUM 2.1 mg/dL (1.8-2.4); PHOSPHOROUS 3.1 mg/dL (2.5-4.9); POTASSIUM 3.2 mmol/L (3.5-5.1); SGOT/AST 319 U/L (15-37); SGPT/ALT 99 U/L (13-61); SODIUM 138 mmol/L (136-145); TOT PROT 6.3 g/dl (6.4-8.2)
[2018-10-13] MEDS ORDERED: DEXTROSE 5%-WATER - 50 ML IVPB ONE ×2 (09:32→15:27)
[2018-10-13] MEDS ORDERED: cefTRIAXone SODIUM 1 GM VIAL ONE (09:32)
[2018-10-13] MEDS: metoPROLOL SUCCINATE 25 MG TAB.SR.24H (FP) PO SCH ×2 (09:34→21:42)
[2018-10-13] MEDS: NIFEdipine E.R. 30 MG TABLET (FP) PO SCH (09:34)
[2018-10-13] MEDS: CEFTRIAXONE 1 GM in DEXTROSE 5%-WATER - 50 ML IVPB SCH (09:34)
--- NOTE | 2018-10-13 14:51 | PN ---
Physical Exam: SUBJECTIVE: Patient seen and examined, still with some pain around cholecystostomy tube site, no nausea, vomiting, diarrhea. Tolerating diet well. OBJECTIVE: Vital Signs Period Temp Pulse Resp BP Sys/Capellan Pulse Ox Last 24 Hr 98.6 F-100.3 F 60-76 20-20 142-155/72-84 94-95 GENERAL: The patient is awake, alert, and fully oriented, in no acute distress. HEAD: Normal with no signs of trauma. EYES: PERRL, extraocular movements intact, sclera anicteric, conjunctiva clear. No ptosis. ENT: Ears normal, nares patent, oropharynx clear without exudates, moist mucous membranes. NECK: Trachea midline, full range of motion, supple. LUNGS: Breath sounds equal, clear to auscultation bilaterally, no wheezes, no crackles, no accessory muscle use. HEART: Regular rate and rhythm, S1, S2 ABDOMEN: Soft, tenderness around cholecystostomy tube site, no voluntary or involuntary guarding or rigidity, positive bowel sounds EXTREMITIES: 2+ pulses, warm, well-perfused, no edema. PSYCH: Normal mood, normal affect. SKIN: Warm, dry, normal turgor, no rashes or lesions noted Laboratory Results - last 24 hr 10/13/18 10/13/18 07:03 07:03 WBC 6.6 RBC 4.91 Hgb 13.9 Hct 41.7 MCV 85.0 MCH 28.3 MCHC 33.3 RDW 13.5 Plt Count 215 MPV 8.0 Absolute Neuts (auto) 4.5 Neutrophils % 67.7 Lymphocytes % 11.1 Monocytes % 13.6 H Eosinophils % 6.5 H Basophils % 1.1 Nucleated RBC % 0 Sodium 138 Potassium 3.2 L Chloride 105 Carbon Dioxide 25 Anion Gap 9 BUN 13 Creatinine 1.1 Creat Clearance w eGFR 65.44 Random Glucose 97 Calcium 8.8 Phosphorus 3.1 Magnesium 2.1 Total Bilirubin 0.5 AST 319 H ALT 99 H Alkaline Phosphatase 119 H Total Protein 6.3 L Albumin 3.0 L Active Medications Generic Name Dose Route Start Last Admin Trade Name Freq PRN Reason Stop Dose Admin Acetaminophen 650 mg 10/09/18 21:15 10/10/18 06:10 Tylenol - PO 650 mg Q6H PRN Administration Fever Or Pain Heparin Sodium (Porcine) 5,000 unit 10/09/18 06:00 10/13/18 05:43 Heparin - SQ 5,000 unit TID VITALIY Administration Ceftriaxone Sodium 1 gm/ 50 mls @ 100 mls/hr 10/09/18 10:00 10/13/18 09:34 Dextrose IVPB 100 mls/hr DAILY VITALIY Administration Protocol Metronidazole 500 mg in 100 mls @ 100 mls/hr 10/09/18 10:00 10/13/18 09:34 Flagyl 500mg Premixed Ivpb - IVPB 100 mls/hr Q8H-IV VITALIY Administration Metoprolol Succinate 25 mg 10/09/18 10:00 10/13/18 09:34 Toprol Xl - PO 25 mg BID VITALIY Administration Nifedipine 90 mg 10/10/18 12:00 10/13/18 09:34 Procardia Xl - PO 90 mg DAILY VITALIY Administration Ondansetron HCl 4 mg 10/09/18 05:44 Zofran Injection IVPUSH Q6H PRN NAUSEA Microbiology 10/09/18 11:50 Body Fluid - Other AFB Smear Concentration - Preliminary 10/09/18 11:50 Body Fluid - Other Mycobacterial Culture - Preliminary 10/09/18 11:50 Body Fluid - Other Gram Stain - Final 10/09/18 11:50 Body Fluid - Other Body Fluid Culture - Final NO GROWTH OF AEROBIC ORGANISMS AFTER 48 HOURS INCUBATION 10/09/18 11:50 Body Fluid - Other Anaerobic Culture - Final NO ANAEROBES WERE ISOLATED 10/09/18 12:51 Body Fluid - Other FRANCO Preparation - Preliminary 10/09/18 12:51 Body Fluid - Other Fungal Culture - Preliminary ASSESSMENT/PLAN: 73 yom with PMHx of L kidney cancer s/p nephrectomy, CKD stage III (Cr around 1.6-1.7), HTN admitted with RUQ abdominal pain, found with acute cholecystitis and mild pancreatitis. -Acute cholecystitis/Pancreatitis around the head, with sepsis s/p cholecystostomy tube placement 10/09 -Abnormal LFTS, ?gall stones related vs antibotics, vs ongoing cholecystitis -Hypokalemia -Hypophosphatemia -Cholelithiasis -CKD stage III (baseline Cr around 1.6-1.7) -HTN -Left kidney cancer s/p nephrectomy -Hyperglycemia Plan: LFTs abnormal today. ID consult Dr. Portillo. Discussed with Dr. Haynes, get MRCP Will order Abdominal US. Serial abdominal exams GI consult. Ceftriaxone/flagyl day 5. Fluid cultures neg so far. BLood cx neg WBC resolved, clinically improved, tolerating diet well. ongoing low grade fevers. Change to NPO for now, and start IV hydration pending above work up. Replete K/Phos prn. Continue metoprolol/nifedipine. Alfuzocin non formulary, patient advised to have family bring from home. Renal function stable. dvTPPX heparin PT eval noted, plan for home services. when improved. Dispo hold off on d/c plan given abnormal LFTs and need for additional work up. Plan discussed with patient, nursing , Dr. Haynes, Dr. Portillo, all questions answered. Visit type - Emergency Visit Emergency Visit: Yes ED Registration Date: 10/09/18 Care time: The patient presented to the Emergency Department on the above date and was hospitalized for further evaluation of their emergent condition. - New Patient This patient is new to me today: No - Critical Care Critical Care patient: No - Discharge Referral Referred to [facility] Med [facility].: No
--- NOTE | 2018-10-13 15:07 | PN ---
Progress Note (short form) - Note Progress Note: ID CONSULT DICTATED ACUTE CHOLECYSTITIS S/P PERCUTANEOUS CHOLECYSTOSTOMY ELEVATED LIVER ENZYMES ? PASSED STONE ? RX (CEFTRIAXONE) SOLITARY KIDNEY WILL SUBSTITUTE ZOSYN RE-IMAGE GALL BLADDER
[2018-10-13] MEDS: D5-1/2NS+20 MEQ KCL - 20 MEQ/1,000 ML INFUS.BAG IV SCH (15:25)
[2018-10-13] MEDS ORDERED: PIPERACILLIN/TAZOBACTAM 3.375 GM VIAL IVPB ONE (15:27)
[2018-10-13] MEDS: PIPERACILLIN/TAZOB 3.375 GM 3.375 GM in DEXTROSE 5%-WATER - 50 ML IVPB SCH ×2 (15:27→17:18)
--- NOTE | 2018-10-13 15:51 | CONS ---
DATE OF CONSULTATION: DATE OF DICTATION: 10/13/2018 INFECTIOUS DISEASE CONSULTATION HISTORY OF PRESENT ILLNESS: The patient is a 73-year-old male who was admitted to the hospital on October 09, 2018, with complaints of abdominal pain, nausea, and vomiting. He was found to have a markedly elevated white blood cell count. Imaging revealed acute cholecystitis with an enlarged gallbladder. He was seen in consultation by surgery. Because of the high operative risks, he underwent placement of a percutaneous cholecystotomy tube. He was prophylactically treated with antibiotics. His course was complicated by low-grade fever. Patient deffervesced; presently with a low-grade fever over the last 24 hours. Cultures of the biliary fluid were negative. The patient was being prepared for discharge on oral antibiotic therapy with the plan to have an interval cholecystectomy performed in 3 months. Today, he was noted to have an elevation of his liver enzymes. He is awake and alert. He denies any pain, no abdominal pain, no nausea, vomiting. He is tolerating his diet. He has had no high-grade fever or shaking chills. PAST MEDICAL HISTORY: Positive for renal cancer, prostate cancer, hypertension. PAST SURGICAL HISTORY: Status post left nephrectomy 2005. Hernia repair. ALLERGIES: No known allergies. HOME MEDICATIONS: Include aspirin, hydrochlorothiazide, Toprol, nifedipine. SOCIAL HISTORY: Lives at home with his significant other. He is a former smoker. SYSTEMS REVIEW: Neurologic: No loss of consciousness, seizure activity, focal weakness. Cardiac: Negative for chest pain or palpitations. Respiratory: Negative for cough or sputum production. Gastrointestinal: As per HPI. Genitourinary: Negative for urinary tract infection. LABORATORY DATA: White count presently 6.6, hematocrit 41.7, platelets 215. BUN 13, creatinine 1.1, total bilirubin 0.5, alkaline phosphatase 119, AST 319, ALT 99. Urinalysis: 2 white cells. PHYSICAL EXAMINATION: General: On exam, he is awake and alert, he is not acutely toxic appearing. Vital signs: Temperature 99.1, T-max 100.3, blood pressure 155/72, pulse 60 regular, respirations 18 per minute. HEENT: Sclerae anicteric. Cardiovascular: Heart sounds S1, S2. Lungs: Clear. Abdomen: Distended and tympanitic. There is no tenderness to palpation. A percutaneous drain is present in the right upper quadrant. There is what appears to be jayleen blood in the drain. Extremities: Negative for edema. IMPRESSION: 1. Acute cholecystitis, status post percutaneous cholecystostomy. 2. Elevated liver enzymes, unclear etiology. 3. Solitary kidney. Reason for elevated liver enzymes not clear. Possibly secondary to stones, less likely secondary to medication (ceftriaxone). Will substitute Zosyn, obtain followup imaging of the gallbladder to assess biliary ducts and position of the drainage tube. IR, surgical followup. Will follow. Thank you for the kind referral. TANVIR ESQUEDA M.D. [id number] MTDD
--- NOTE | 2018-10-13 16:39 | CON.GI ---
Consult Consult Specialty:: GI Referred by:: Hospitalist Service Reason for Consultation:: Elevated liver chemistries - History of Present Illness Chief Complaint: RUQ pain History of Present Illness: 73M admitted last week for evaluation of RUQ pain. He was noted to have a leukocytosis, CT scan of A/P revealing Distended fluid filled gallbladder, Hyperdense mass vs. cyst in right kidney and mild pancreatitis (normal lipase on admission). He had cholecystostomy 10/09. He was evaluated by Dr. Haynes of surgery. Per the patient and nurse it has been draining blood since it was placed. 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 He states that the RUQ pain is more localized to the point of tube insertion that when compared to admission. He denies any rectal bleeding or passage of melena. His last bowel movement was today. Transaminases and ALP carmen today. He had a temp 100.3 yesterday and has been afebrile today. 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 There is no family history of colorectal cancer or other GI malignancy. 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 No: Liver Transplant, Orchiectomy - Alcohol/Substance Use Hx Alcohol Use: No History of Substance Use: reports: None - Smoking History Smoking history: Never smoked Have you smoked in the past 12 months: No If you are a former smoker, when did you quit?: 1992 - Social History Usual Living Arrangement: With Spouse ADL: Independent Place of : Other ([place]) Came to [place]year[place] 1969 History of Recent Travel: No Home Medications - Allergies Allergies/Adverse Reactions: Allergies Allergy/AdvReac Type Severity Reaction Status Date / Time No Known Drug Allergies Allergy Verified 10/09/18 02:20 - Home Medications Home Medications: Ambulatory Orders Aspirin 81 mg PO DAILY 10/26/12 Docosahexanoic Acid/Epa [Fish Oil Softgel] 1 each PO DAILY 10/26/12 Hydrochlorothiazide [Hctz] 25 mg PO DAILY 10/26/12 Metoprolol Succinate [Toprol XL] 50 mg PO DAILY 10/26/12 Multivitamin with Minerals [Men's One Daily] 1 each PO DAILY 10/26/12 Nifedipine [Nifedipine ER] 90 mg PO DAILY 10/26/12 Potassium Chloride Oral Soln [KCl *Liquid*] 20 meq PO DAILY 10/26/12 Alfuzosin HCl [Alfuzosin HCl ER] 10 mg PO DAILY 10/09/18 Family Disease History - Family Disease History Family Disease History: Other: Father (: 60's: Prostate issues), Mother ( : 80's: Old age), Brother (2 Healthy), Sister (3 Healthy), Daughter (1, healthy) Other Family History: No family history of colorectal cancer Review of Systems - Review of Systems Constitutional: denies: Fever, Unintentional Wgt. Loss Gastrointestinal: reports: Abdominal Pain. denies: Melena, Rectal Bleeding, Vomiting Physical Exam-GI Vital Signs: Vital Signs Temperature 99.1 F 10/13/18 14:06 Pulse Rate 60 10/13/18 14:06 Respiratory Rate 20 10/13/18 10:00 Blood Pressure 155/72 10/13/18 14:06 O2 Sat by Pulse Oximetry (%) 94 L 10/13/18 09:00 Constitutional: Yes: Calm Eyes: No: Sclera Icterus Cardiovascular: Yes: Regular Rate and Rhythm. No: Murmur Respiratory: Yes: CTA Bilaterally Gastrointestinal Inspection: Yes: Scars (Left sided) ...Auscultate: Yes: Normoactive Bowel Sounds ...Palpate: Yes: Tenderness (TTP at insertion point of cholecystostomy tube) ...Percussion: No: Tympanitic Edema: No (No LE edema) Neurological: Yes: Alert Labs: CBC, BMP 10/13/18 07:03 10/13/18 07:03 INR, PTT INR 1.31 (0.83-1.09) H 10/09/18 12:49 Hepatic Panel Total Bilirubin 0.5 mg/dL (0.2-1) 10/13/18 07:03 Direct Bilirubin 0.3 mg/dL (0.0-0.2) H 10/10/18 07:30 AST 319 U/L (15-37) H 10/13/18 07:03 ALT 99 U/L (13-61) H 10/13/18 07:03 Alkaline Phosphatase 119 U/L (45-117) H 10/13/18 07:03 Albumin 3.0 g/dl (3.4-5.0) L 10/13/18 07:03 Problem List - Problems (1) Cholelithiasis and acute cholecystitis with obstruction Assessment/Plan: S/P Cholecystostomy tube: Tube has been draining bile as opposed to bile. counts have been stable and no melena / rectal bleeding has been described. ? if adequate draininage of infected gallbladder being achieved. ? passage of blood into the biliary tract, ? concomtant bile duct stone that could be contributing to LFT elevations. Agree with NPO Monitor LFTs Patient going for US and MRCP has been ordered Left message to discuss case with Dr. Hernandes Code(s): K80.01 - CALCULUS OF GALLBLADDER W ACUTE CHOLECYSTITIS W OBSTRUCTION
[2018-10-13 19:47] LABS: INR 1.17 (0.83-1.09); PROTHROMBIN TIME (PATIENT) 13.8 SEC (9.7-13.0)
[2018-10-14] MEDS ORDERED: DEXTROSE 5%-WATER - 50 ML IVPB ONE ×3 (01:04→17:55)
[2018-10-14] MEDS ORDERED: PIPERACILLIN/TAZOBACTAM 3.375 GM VIAL IVPB ONE ×3 (01:04→17:55)
[2018-10-14] MEDS: PIPERACILLIN/TAZOB 3.375 GM 3.375 GM in DEXTROSE 5%-WATER - 50 ML IVPB SCH ×3 (01:16→18:00)
[2018-10-14] MEDS: HEPARIN NA (PORCINE) 5,000 UNITS/ML 1ML VIAL SQ SCH ×3 (06:20→21:49)
[2018-10-14] MEDS: D5-1/2NS+20 MEQ KCL - 20 MEQ/1,000 ML INFUS.BAG IV SCH (06:20)
[2018-10-14 09:00] LABS: BASO % 0.9 % (0-2.0); EOS % 6.9 % (0-4.5); HEMATOCRIT 39.1 % (35.4-49); HEMOGLOBIN 13.3 GM/dL (11.7-16.9); LYMPH % 12.6 % (8-40); MCH 28.6 pg (25.7-33.7); MEAN CELL VOLUME 84.3 fl (80-96); MEAN PLT VOLUME 7.9 fl (7.5-11.1); MONO % 16.2 % (3.8-10.2); NEUT % 63.4 % (42.8-82.8); PLATELET COUNT 206 K/MM3 (134-434); RBC 4.64 M/mm3 (4.00-5.60); RDW 13.5 % (11.9-15.9)
[2018-10-14 09:36] LABS: ALBUMIN 2.8 g/dl (3.4-5.0); ALK PHOS 125 U/L (45-117); ANION GAP 7 MMOL/L (8-16); BILIRUBIN,TOTAL 0.4 mg/dL (0.2-1); BLOOD UREA NITROGEN 10 mg/dL (7-18); CALCIUM 8.4 mg/dL (8.5-10.1); CHLORIDE 105 mmol/L (98-107); CO2 25 mmol/L (21-32); GLUCOSE,RANDOM 113 mg/dL (74-106); MAGNESIUM 2.2 mg/dL (1.8-2.4); POTASSIUM 3.4 mmol/L (3.5-5.1); SGOT/AST 342 U/L (15-37); SGPT/ALT 160 U/L (13-61); SODIUM 137 mmol/L (136-145); TOT PROT 5.8 g/dl (6.4-8.2)
[2018-10-14] MEDS: metoPROLOL SUCCINATE 25 MG TAB.SR.24H (FP) PO SCH ×2 (09:47→21:49)
[2018-10-14] MEDS: NIFEdipine E.R. 30 MG TABLET (FP) PO SCH (09:47)
--- NOTE | 2018-10-14 10:15 | PN.GI ---
GI Progress Note Subjective: Pt seen/examined at bedside, sitting up, feeling better, no complaints, denies abdominal pain, n/v, fever/chills. Small amount of blood in cholecystostomy bag. - Objective Vital Signs: Vital Signs Temperature 99.4 F 10/14/18 06:38 Pulse Rate 67 10/14/18 06:38 Respiratory Rate 20 10/14/18 06:38 Blood Pressure 132/58 L 10/14/18 06:38 O2 Sat by Pulse Oximetry (%) 95 10/14/18 09:00 Constitutional: Well Nourished, No Distress, Calm Cardiovascular: Yes: WNL, Regular Rate and Rhythm Respiratory: Yes: WNL, Regular, CTA Bilaterally Gastrointestinal Inspection: Yes: WNL ...Auscultate: Yes: Normoactive Bowel Sounds ...Palpate: Yes: Other (Abd soft, nt, nd +C tube draining small amount of blood) Labs: CBC, BMP 10/14/18 08:20 10/14/18 08:20 INR, PTT INR 1.17 (0.83-1.09) H 10/13/18 18:45 Problem List - Problems (1) Elevated LFTs Assessment/Plan: 73yo male with cholecystitis s/p cholecystostomy tube on 10/09 draining blood, Hb stable, now with elevated transaminases. Bili normal. US unremarkable, though limited s/p MRCP revealing thickened irregular appearing gallbladder, unable to exclude malignant process. 1.2cm pancreatic tail lesion also seen, no biliary or PD dilation. LFT elevation possibly multifactorial in setting of sepsis vs medications (?zosyn coinciding with acute elevation) vs ischemic hepatitis vs passed stone -Recommend surgery re-evaluation in view of GB findings on MRI, possibly leading to bloody drain output -Continue to monitor Hb and C tube output -Check hepatitis serologies -Closely monitor LFT trend -Avoid nonessential hepatotoxic medications -Follow up cultures and complete infectious work up -Pt will require follow up of pancreatic tail lesion once acute issues have resolved Attempted to contact Dr. Hernandes and medicine team to discuss, await call back Code(s): R94.5 - ABNORMAL RESULTS OF LIVER FUNCTION STUDIES
--- NOTE | 2018-10-14 10:44 | PN ---
Physical Exam: SUBJECTIVE: Patient seen and examined; no complaints;; temp 99.8 last night ; wbc count decreased; no pain OBJECTIVE: Vital Signs Period Temp Pulse Resp BP Sys/Capellan Pulse Ox Last 24 Hr 98.8 F-99.9 F 60-84 20-20 132-164/58-84 94-95 GENERAL: The patient is awake, alert, and fully oriented, in no acute distress. LUNGS: Breath sounds equal, clear to auscultation bilaterally, no wheezes, no crackles, no accessory muscle use. HEART: Regular rate and rhythm, S1, S2 without murmur, rub or gallop. ABDOMEN: Soft, nontender, slightly distended, normoactive bowel sounds, with GB drain; draining small am of blood; no bile EXTREMITIES: 2+ pulses, warm, well-perfused, no edema. NEUROLOGICAL: Cranial nerves II through XII grossly intact. Normal speech, gait not observed. PSYCH: Normal mood, normal affect. SKIN: Warm, dry, normal turgor, no rashes or lesions noted Laboratory Results - last 24 hr 10/13/18 10/14/18 10/14/18 18:45 08:20 08:20 WBC 7.0 RBC 4.64 Hgb 13.3 Hct 39.1 MCV 84.3 MCH 28.6 MCHC 34.0 RDW 13.5 Plt Count 206 MPV 7.9 Absolute Neuts (auto) 4.4 Neutrophils % 63.4 Lymphocytes % 12.6 Monocytes % 16.2 H Eosinophils % 6.9 H Basophils % 0.9 Nucleated RBC % 0 PT with INR 13.80 H INR 1.17 H Sodium 137 Potassium 3.4 L Chloride 105 Carbon Dioxide 25 Anion Gap 7 L BUN 10 Creatinine 1.0 Creat Clearance w eGFR 73.04 Random Glucose 113 H Calcium 8.4 L Phosphorus 3.0 Magnesium 2.2 Total Bilirubin 0.4 AST 342 H ALT 160 H Alkaline Phosphatase 125 H Total Protein 5.8 L Albumin 2.8 L Active Medications Generic Name Dose Route Start Last Admin Trade Name Freq PRN Reason Stop Dose Admin Heparin Sodium (Porcine) 5,000 unit 10/09/18 06:00 10/14/18 06:20 Heparin - SQ 5,000 unit TID VITALIY Administration Potassium Chloride/Dextrose/Sod Cl 20 meq in 1,000 mls @ 100 mls/hr 10/13/18 15:00 10/14/18 06:20 D5-1/2ns+20 Meq Kcl - IV 100 mls/hr ASDIR VITALIY Administration Piperacillin Sod/Tazobactam 50 mls @ 100 mls/hr 10/13/18 15:30 10/14/18 09:46 Sod 3.375 gm/ Dextrose IVPB 100 mls/hr Q8H-IV VITALIY Administration Protocol Metoprolol Succinate 25 mg 10/09/18 10:00 10/14/18 09:47 Toprol Xl - PO 25 mg BID VITALIY Administration Nifedipine 90 mg 10/10/18 12:00 10/14/18 09:47 Procardia Xl - PO 90 mg DAILY VITALIY Administration ASSESSMENT/PLAN: 73 year old male with PMHx of L kidney cancer s/p nephrectomy, CKD stage III ( Cr around 1.6-1.7), HTN admitted with RUQ abdominal pain, found with acute cholecystitis and mild pancreatitis. #abdominal pain secondary to acute cholelithiasis -s/pIR drain cholecystostomy tube placement -now with elevated liver enzymes -MRCP pending -Dr Haynes and GI following -IVF, NPO #mild pancreatitis on imaging; iVF monitor -lipase neg #sepsis; sec to acute cholecystiitits -iv ceftriaxone/flagyl; can dc on ceftin and flagyl -bld cx #DM -insulin ss -bgm #CKD stage III (baseline Cr around 1.6-1.7) #HTN #Left kidney cancer s/p nephrectomy VTE; heparin sq Visit type - Emergency Visit Emergency Visit: Yes ED Registration Date: 10/09/18 Care time: The patient presented to the Emergency Department on the above date and was hospitalized for further evaluation of their emergent condition. - New Patient This patient is new to me today: No - Critical Care Critical Care patient: No
--- NOTE | 2018-10-14 15:07 | PN ---
Teaching Attending Note Name of Resident: Myrna Fajardo ATTENDING PHYSICIAN STATEMENT I saw and evaluated the patient. I reviewed the resident's note and discussed the case with the resident. I agree with the resident's findings and plan as documented. SUBJECTIVE: Mr Burns is without complaint. Denies cp, sob, n/v. OBJECTIVE: Last Vital Signs Temp Pulse Resp BP Pulse Ox 36.9 C 63 20 142/84 95 10/14/18 14:50 10/14/18 14:50 10/14/18 10:00 10/14/18 14:50 10/14/18 09:00 Gen: nad Pulm: ctab w/o w/r/r CV: rrr w/o m/r/g Abd: +bs, s/nt/nd Ext: no c/c/e CBC, BMP 10/14/18 08:20 10/14/18 08:20 ASSESSMENT AND PLAN: Problem List - Problems (1) Acute cholecystitis Assessment/Plan: -was originally on rocephin and flagyl -changed to zosyn -ID following -drain in place, outpatient follow up with Dr Haynes -if GI approves, begin diet Code(s): K81.0 - ACUTE CHOLECYSTITIS (2) Elevated LFTs Assessment/Plan: -MRCP reviewed -GI following -monitor Code(s): R94.5 - ABNORMAL RESULTS OF LIVER FUNCTION STUDIES (3) HTN (hypertension) Assessment/Plan: -continue toprol xl and nifedipine Code(s): I10 - ESSENTIAL (PRIMARY) HYPERTENSION (4) Hypokalemia Assessment/Plan: -replace in IVF Code(s): E87.6 - HYPOKALEMIA
--- NOTE | 2018-10-14 18:16 | PN ---
Progress Note (short form) - Note Progress Note: still with bloody drainage no fevers feels well Vital Signs Period Temp Pulse Resp BP Sys/Capellan Pulse Ox Last 24 Hr 98.5 F-99.9 F 63-84 20-20 132-164/58-85 94-95 cor-rrr lungs clear abd soft, +ruq drain with blood ext no edema CBC, BMP 10/14/18 08:20 10/14/18 08:20 Laboratory Tests 10/13/18 10/14/18 07:03 08:20 AST 319 H 342 H ALT 99 H 160 H Alkaline Phosphatase 119 H 125 H Microbiology 10/09/18 11:50 Body Fluid - Other AFB Smear Concentration - Final 10/09/18 11:50 Body Fluid - Other Mycobacterial Culture - Preliminary 10/09/18 11:50 Body Fluid - Other Gram Stain - Final 10/09/18 11:50 Body Fluid - Other Body Fluid Culture - Final NO GROWTH OF AEROBIC ORGANISMS AFTER 48 HOURS INCUBATION 10/09/18 11:50 Body Fluid - Other Anaerobic Culture - Final NO ANAEROBES WERE ISOLATED 10/09/18 12:51 Body Fluid - Other FRANCO Preparation - Preliminary 10/09/18 12:51 Body Fluid - Other Fungal Culture - Preliminary MRI and ultrasound noted a/p continue zosyn awaiting surgery f/u GI eval noted d/w hospitalist team
[2018-10-15] MEDS ORDERED: PIPERACILLIN/TAZOBACTAM 3.375 GM VIAL IVPB ONE ×2 (00:31→10:05)
[2018-10-15] MEDS ORDERED: DEXTROSE 5%-WATER - 50 ML IVPB ONE ×2 (00:32→10:05)
[2018-10-15] MEDS: PIPERACILLIN/TAZOB 3.375 GM 3.375 GM in DEXTROSE 5%-WATER - 50 ML IVPB SCH ×2 (02:18→10:37)
[2018-10-15] MEDS: HEPARIN NA (PORCINE) 5,000 UNITS/ML 1ML VIAL SQ SCH ×2 (06:21→14:38)
[2018-10-15 08:17] LABS: BASO % 0.7 % (0-2.0); EOS % 6.6 % (0-4.5); HEMATOCRIT 42.1 % (35.4-49); HEMOGLOBIN 14.1 GM/dL (11.7-16.9); LYMPH % 17.7 % (8-40); MCH 28.1 pg (25.7-33.7); MCHC 33.5 g/dl (32.0-35.9); MEAN CELL VOLUME 83.9 fl (80-96); MEAN PLT VOLUME 7.7 fl (7.5-11.1); MONO % 14.7 % (3.8-10.2); NEUT % 60.3 % (42.8-82.8); PLATELET COUNT 257 K/MM3 (134-434); RBC 5.01 M/mm3 (4.00-5.60); RDW 13.7 % (11.9-15.9); WHITE BLOOD COUNT 8.2 K/mm3 (4.0-10.0)
[2018-10-15 08:58] LABS: ALBUMIN 3.2 g/dl (3.4-5.0); ALK PHOS 154 U/L (45-117); ANION GAP 9 MMOL/L (8-16); BILIRUBIN,TOTAL 0.5 mg/dL (0.2-1); BLOOD UREA NITROGEN 11 mg/dL (7-18); CALCIUM 8.8 mg/dL (8.5-10.1); CHLORIDE 104 mmol/L (98-107); CO2 26 mmol/L (21-32); CREATININE 1.2 mg/dL (0.55-1.3); GLUCOSE,RANDOM 87 mg/dL (74-106); MAGNESIUM 2.4 mg/dL (1.8-2.4); POTASSIUM 3.4 mmol/L (3.5-5.1); SGOT/AST 351 U/L (15-37); SGPT/ALT 210 U/L (13-61); SODIUM 139 mmol/L (136-145); TOT PROT 6.5 g/dl (6.4-8.2)
[2018-10-15] MEDS ORDERED: POTASSIUM CHLORIDE TABS 20 MEQ TABLET.ER (FP) PO ONE (10:00)
[2018-10-15] MEDS: metoPROLOL SUCCINATE 25 MG TAB.SR.24H (FP) PO SCH (10:37)
[2018-10-15] MEDS: NIFEdipine E.R. 30 MG TABLET (FP) PO SCH (10:37)
--- NOTE | 2018-10-15 14:26 | PN ---
Progress Note, Physician History of Present Illness: AWAKE, ALERT IN BED NO C/O ABDOMINAL PAIN LOW GRADE FEVER WBC WNL - Current Medication List Current Medications: Active Medications Heparin Sodium (Porcine) (Heparin -) 5,000 unit SQ TID [facility] Last Admin: 10/15/18 06:21 Dose: Not Given Piperacillin Sod/Tazobactam (Sod 3.375 gm/ Dextrose) 50 mls @ 100 mls/hr IVPB Q8H-IV VITALIY; Protocol Last Admin: 10/15/18 10:37 Dose: 100 mls/hr Metoprolol Succinate (Toprol Xl -) 25 mg PO BID [facility] Last Admin: 10/15/18 10:37 Dose: 25 mg Nifedipine (Procardia Xl -) 90 mg PO DAILY [facility] Last Admin: 10/15/18 10:37 Dose: 90 mg - Objective Vital Signs: Vital Signs Temperature 98.7 F 10/15/18 06:51 Pulse Rate 65 10/15/18 12:00 Respiratory Rate 20 10/15/18 12:00 Blood Pressure 136/78 10/15/18 12:00 O2 Sat by Pulse Oximetry (%) 96 10/15/18 09:00 Constitutional: Yes: No Distress Eyes: Yes: Conjunctiva Clear Cardiovascular: Yes: Regular Rate and Rhythm, S1, S2 Respiratory: Yes: CTA Bilaterally Gastrointestinal: Yes: Normal Bowel Sounds, Soft, Other (SL DISTENDED, TYMPANITIC). No: Tenderness Labs: CBC, BMP 10/15/18 07:43 10/15/18 07:43 INR, PTT INR 1.17 (0.83-1.09) H 10/13/18 18:45 Assessment/Plan S/P CHOLECYSTOSTOMY TUBE PLACEMENT ELEVATED LFTS ? ETIOL CONTINUE EMPIRIC COVERAGE, BILIARY TRACT PATHOGENS WITH ZOSYN
--- NOTE | 2018-10-15 14:33 | DS ---
Physical Exam: SUBJECTIVE: Patient seen and examined; c ont rise in LFT; no complaints; low grade temp OBJECTIVE: Vital Signs Period Temp Pulse Resp BP Sys/Capellan Pulse Ox Last 24 Hr 98.5 F-98.7 F 62-67 20-21 136-147/78-88 96-96 PHYSICAL EXAM GENERAL: The patient is awake, alert, and fully oriented, in no acute distress. LUNGS: very mild bibasialr crackles HEART: Regular rate and rhythm, S1, S2 without murmur, rub or gallop. ABDOMEN: non tender; srikanth drain from gallbladder with small amt of blood ; no bile EXTREMITIES: 2+ pulses, warm, well-perfused, no edema. NEUROLOGICAL: Cranial nerves II through XII grossly intact. Normal speech, gait not observed. PSYCH: Normal mood, normal affect. SKIN: Warm, dry, normal turgor, no rashes or lesions noted. LABS Laboratory Results - last 24 hr 10/15/18 10/15/18 07:43 07:43 WBC 8.2 RBC 5.01 Hgb 14.1 Hct 42.1 MCV 83.9 MCH 28.1 MCHC 33.5 RDW 13.7 Plt Count 257 D MPV 7.7 Absolute Neuts (auto) 4.9 Neutrophils % 60.3 Lymphocytes % 17.7 D Monocytes % 14.7 H Eosinophils % 6.6 H Basophils % 0.7 Nucleated RBC % 0 Sodium 139 Potassium 3.4 L Chloride 104 Carbon Dioxide 26 Anion Gap 9 BUN 11 Creatinine 1.2 Creat Clearance w eGFR 59.18 Random Glucose 87 Calcium 8.8 Phosphorus 3.0 Magnesium 2.4 Total Bilirubin 0.5 AST 351 H ALT 210 H Alkaline Phosphatase 154 H Total Protein 6.5 Albumin 3.2 L HOSPITAL COURSE: Date of Admission:10/09/18 Date of Discharge: 10/15/18 73 year old male with PMHx of L kidney cancer s/p nephrectomy, CKD stage III ( Cr around 1.6-1.7), HTN admitted with RUQ abdominal pain, found with acute cholecystitis and mild pancreatitis. S/P IR drain cholecystostomy tube placement. After tube, patient LFTS (AST/ALT 351/160 today) started to rise with low grade temps. Total bili wnl. MRCP revealing thickened gallbladder with irregualr shape. Transfer to [facility] for cholecystectomy r/o carcinoma. Minutes to complete discharge: 35 Discharge Summary Reason For Visit: ACUTE CHOLECYSTITIS Current Active Problems Acute cholecystitis (Acute) Cholelithiasis and acute cholecystitis with obstruction (Acute) Elevated LFTs (Acute) HTN (hypertension) (Acute) Hyperglycemia (Acute) Hypokalemia (Acute) Leucocytosis (Acute) Renal dysfunction (Acute) Condition: Stable - Instructions Diet, Activity, Other Instructions: You were admitted with gall bladder infection. You were seen by surgeon and had cholecystostomy tube placed. You are being transferred to [facility] for removal. Referrals: Sharon Hyanes MD [Staff Physician] - Lianne Negron MD [Primary Care Provider] - Disposition: TRANSFER ACUTE CARE/OTHER HOSP - Home Medications Comprehensive Discharge Medication List: Ambulatory Orders Aspirin 81 mg PO DAILY 10/26/12 Docosahexanoic Acid/Epa [Fish Oil Softgel] 1 each PO DAILY 10/26/12 Hydrochlorothiazide [Hctz -] 25 mg PO DAILY 10/26/12 Metoprolol Succinate [Toprol XL] 50 mg PO DAILY 10/26/12 Multivitamin with Minerals [Men's One Daily] 1 each PO DAILY 10/26/12 Nifedipine [Nifedipine ER] 90 mg PO DAILY 10/26/12 Potassium Chloride Oral Soln [KCl Oral Solution -] 20 meq PO DAILY 10/26/12 Alfuzosin HCl [Alfuzosin HCl ER] 10 mg PO DAILY 10/09/18 Heparin - 5,000 unit SQ TID vial 10/15/18 Metoprolol Succinate [Toprol XL -] 25 mg PO BID tab.sr.24h 10/15/18 Nifedipine ER [Procardia XL -] 90 mg PO DAILY tab.er.24 10/15/18 Piperacillin/Tazob 3.375 gm [Zosyn -] 3.375 gm IVPB Q8H-IV vial 10/15/18 This patient is new to me today: No Emergency Visit: Yes ED Registration Date: 10/09/18 Care time: The patient presented to the Emergency Department on the above date and was hospitalized for further evaluation of their emergent condition. Critical Care patient: No - Discharge Referral Referred to [facility] No
[2018-10-15 14:38] VITALS: BP 144/67; PULSE 60; TEMP 97.7
--- NOTE | 2018-10-15 14:54 | PN ---
Teaching Attending Note Name of Resident: Myrna Fajardo ATTENDING PHYSICIAN STATEMENT I saw and evaluated the patient. I reviewed the resident's note and discussed the case with the resident. I agree with the resident's findings and plan as documented. OBJECTIVE: Last Vital Signs Temp Pulse Resp BP Pulse Ox 36.5 C 60 20 144/67 96 10/15/18 14:37 10/15/18 14:37 10/15/18 12:00 10/15/18 14:37 10/15/18 09:00 Gen: nad Pulm: ctab w/o w/r/r CV: rrr w/o m/r/g Abd: +bs, s/nt/nd, tube in place Ext: no c/c/e CBC, BMP 10/15/18 07:43 10/15/18 07:43 Mr Burns is a pleasant 73 year old male who presented to the hospital with abdominal pain. He was admitted secondary to concern for cholecystitis and seen by surgery and ID. He was started on zosyn and a tube was placed for drainage. He did not have any purulent drainage but he had bloody drainage. He also had an increase in his LFTs, GI was consulted and an MRCP was performed. There is concern for malignancy of his gallbladder and case was discussed with surgery. He recommended transfer to [facility] as he needs a hepatic surgeon for resection. He is safe for transfer today. Problem List - Problems (1) Acute cholecystitis Code(s): K81.0 - ACUTE CHOLECYSTITIS (2) Elevated LFTs Code(s): R94.5 - ABNORMAL RESULTS OF LIVER FUNCTION STUDIES (3) HTN (hypertension) Code(s): I10 - ESSENTIAL (PRIMARY) HYPERTENSION (4) Hypokalemia Code(s): E87.6 - HYPOKALEMIA
== END 2018-10-15 16:00 | disposition short-term general hospital (02) | DRG 871 ==
LOC: JER 02:07 → JERBED 04:51 → J6S 06:30
PROVIDERS: ADMIT Internal Medicine; ATTEND Internal Medicine
PROC: 0F9430Z Drainage of Gallbladder with Drainage Device, Percutaneous Approach (ICD-10-PCS; principal; 2018-10-09)
DX: A41.9 Sepsis, unspecified organism (principal); K85.90 Acute pancreatitis without necrosis or infection, unspecified; K80.00 Calculus of gallbladder with acute cholecystitis without obstruction; N17.9 Acute kidney failure, unspecified; Z90.5 Acquired absence of kidney; I10 Essential (primary) hypertension; E87.6 Hypokalemia; R73.9 Hyperglycemia, unspecified; D72.829 Elevated white blood cell count, unspecified; N18.3 Chronic kidney disease, stage 3 (moderate); R94.5 Abnormal results of liver function studies; E83.39 Other disorders of phosphorus metabolism; N28.1 Cyst of kidney, acquired; E86.0 Dehydration
CPT/HCPCS: 36415; 47532; 71045-TC-FY; 74177-TC; 74181-TC; 76000-TC-FY; 76098-TC-FY; 76705-TC; 76998-TC; 80048; 80053; 80076; 81003; 82150; 82248; 82962; 83036; 83605; 83690; 83735; 84100; 84484; 85025; 85610; 85730; 86850; 86900; 86901; 87070; 87075; 87102; 87116; 87205; 87206; 87210; 87899; 93005; 93010; 94010; 97116-GP; 97161-GP; 99284-25; A4358; C1729; C1769; J0131; J1644; J7030

== ENCOUNTER 2018-11-17 21:08 | Emergency (ER) | payer OTHER ==
[2018-11-17 21:18] VITALS: BP 162/89; PULSE 76; TEMP 98.2; BMI 24.3
--- NOTE | 2018-11-17 21:27 | PDOC ---
Rapid Medical Evaluation Chief Complaint: Pain Time Seen by Provider: 11/17/18 21:26 Medical Evaluation: Allergies Allergy/AdvReac Type Severity Reaction Status Date / Time No Known Drug Allergies Allergy Verified 11/17/18 21:10 Vital Signs Temp Pulse Resp BP Pulse Ox 98.2 F 76 18 162/89 100 11/17/18 21:11 11/17/18 21:11 11/17/18 21:11 11/17/18 21:11 11/17/18 21:11 11/17/18 21:26 I have performed a brief in-person evaluation of this patient. The patient presents with a chief complaint of: scant blood at trochar site s/p Lap choley Pertinent physical exam findings: dried blood present to trochar site. No s/s infection. No physical c/o. I have ordered the following: nothing The patient will proceed to the ED for further evaluation. Discharge Disposition - Diagnosis Post-op bleeding - Discharge Dispostion Last Admission D/C Date: 10/15/18 - Referrals Referrals: Lianne Negron MD [Primary Care Provider] - - Patient Instructions - Post Discharge Activity
--- NOTE | 2018-11-17 21:34 | PDOC ---
History of Present Illness - General Chief Complaint: Pain Stated Complaint: BLEEDING S/P SURGERY Time Seen by Provider: 11/17/18 21:26 - History of Present Illness Initial Comments: 11/17/18 21:34 73-year-old man 4 days postop laparoscopic cholecystectomy with scant dried blood on the dressing times one day. He has no other symptoms no fevers chills or night sweats he's eating and drinking normally. Past History - Past Medical History Allergies/Adverse Reactions: Allergies Allergy/AdvReac Type Severity Reaction Status Date / Time No Known Drug Allergies Allergy Verified 11/17/18 21:10 Home Medications: Ambulatory Orders Aspirin 81 mg PO DAILY 10/26/12 Docosahexanoic Acid/Epa [Fish Oil Softgel] 1 each PO DAILY 10/26/12 Hydrochlorothiazide [Hctz -] 25 mg PO DAILY 10/26/12 Metoprolol Succinate [Toprol XL] 50 mg PO DAILY 10/26/12 Multivitamin with Minerals [Men's One Daily] 1 each PO DAILY 10/26/12 Nifedipine [Nifedipine ER] 90 mg PO DAILY 10/26/12 Potassium Chloride Oral Soln [KCl Oral Solution -] 20 meq PO DAILY 10/26/12 Alfuzosin HCl [Alfuzosin HCl ER] 10 mg PO DAILY 10/09/18 Heparin - 5,000 unit SQ TID vial 10/15/18 Metoprolol Succinate [Toprol XL -] 25 mg PO BID tab.sr.24h 10/15/18 Nifedipine ER [Procardia XL -] 90 mg PO DAILY tab.er.24 10/15/18 Piperacillin/Tazob 3.375 gm [Zosyn -] 3.375 gm IVPB Q8H-IV vial 10/15/18 Cancer: Yes (KIDNEY/PROSTATE) Cardiac Disorders: No CVA: No COPD: No CHF: No Dementia: No Diabetes: No GI Disorders: No Disorders: No HTN: Yes Hypercholesterolemia: No Liver Disease: No Seizures: No Thyroid Disease: No - Surgical History Abdominal Surgery: No Appendectomy: No Cardiac Surgery: No Cholecystectomy: No Lung Surgery: No Neurologic Surgery: No Orthopedic Surgery: No - Immunization History Immunization Up to Date: Yes - Suicide/Smoking/Psychosocial Hx Smoking History: Never smoked Have you smoked in the past 12 months: No If you are a former smoker, when did you quit?: 1992 Hx Alcohol Use: No Drug/Substance Use Hx: No Substance Use Type: None Hx Substance Use Treatment: No Review of Systems - Review of Systems Constitutional: No: Fever *Physical Exam - Vital Signs Last Vital Signs Temp Pulse Resp BP Pulse Ox 98.2 F 76 18 162/89 100 11/17/18 21:11 11/17/18 21:11 11/17/18 21:11 11/17/18 21:11 11/17/18 21:11 - Physical Exam Comments: 11/17/18 21:33 HEAD: NC/AT EYES: Conjuntiva clear ABDOMEN: Soft NT ND; surgical sites are clean and dry with normal surrounding skin color and temperature. The surgical dressing about the umbilicus has scant dried blood on the dressing. MS: Full ROM in all joints without edema NEUROLOGIC: No gross sensory or motor deficits, NVID SKIN: Normal color and temperature no lesions or rashes Medical Decision Making - Medical Decision Making 11/17/18 21:32 Ears skin and blood on a surgical dressing from a laparoscopic cholecystectomy, there is nothing to do emergently. I've instructed the patient to leave the dressing on and follow-up with his surgeon as scheduled in 2 days. *DC/Admit/Observation/Transfer Diagnosis at time of Disposition: Encounter for post surgical wound check Diagnosis at time of Disposition: (Ruled Out): Post-op bleeding - Discharge Dispostion Disposition: HOME Condition at time of disposition: Stable Decision to Admit order: No - Referrals Referrals: Lianne Negron MD [Primary Care Provider] - - Patient Instructions Additional Instructions: Return to the emergency room should her dressing becomes further saturated with blood in the meantime follow-up with your general surgeon as scheduled. - Post Discharge Activity
== END 2018-11-17 21:39 | disposition home or self-care (01) ==
LOC: JERFT 21:08 → JER 21:08 → JERFT 21:39
DX: Z48.817 Encounter for surgical aftercare following surgery on the skin and subcutaneous tissue (principal); L76.22 Postprocedural hemorrhage of skin and subcutaneous tissue following other procedure
CPT/HCPCS: 99281-25